=== PATIENT | male | born 1950 | race Caucasian/White ===

== ENCOUNTER 2020-12-24 13:43 | Inpatient (IN) ==
--- NOTE | 2020-12-24 14:23 | XRay Report ---
INDICATION: R great toe cellulitis TECHNIQUE: AP, oblique, lateral right foot COMPARISON: None. FINDINGS: Lateral view demonstrates a penetrating ulcer along the plantar aspects of the distal right 1st metatarsal. AP and oblique views show associated soft tissue swelling and tiny soft tissue gas bubbles. A gas gangrene is possible. No focal cortical destruction. No plain film evidence for osteomyelitis. No acute fracture. History is extensive atherosclerotic disease consistent with diabetes IMPRESSION: 1. Findings consistent with penetrating ulcer at the right 1st metatarsal phalangeal joint 2. Generalized soft tissue swelling at the base of the right 1st digit. Very small soft tissue gas bubbles identified 3. No cortical destruction. No evidence for osteomyelitis Interpreted and Authenticated by: Master Carney 12/24/20
[2020-12-24 15:31] LABS: Basophils # (Auto) 0.04 K/mcL (0.00-0.20); Basophils % (Auto) 0.5 % (0.0-2.0); Eosinophils % (Auto) 1.2 % (0.0-7.0); Hematocrit 37.9 % (41.0-55.0); Hemoglobin 11.9 g/dL (13.5-16.5); Lymphocytes # (Auto) 0.54 K/mcL (1.50-4.80); Lymphocytes % (Auto) 6.6 % (15.0-49.0); Mean Cell Volume 85.2 fL (80.0-100.0); Mean Corpuscular HGB Conc 31.4 g/dL (31.0-36.0); Mean Platelet Volume 8.9 fL (7.4-10.4); Monocytes # (Auto) 0.82 K/mcL (0.10-0.90); Neutrophils % (Auto) 81.7 % (38.0-78.0); Platelet Count 203 K/mcL (140-440); RBC 4.45 M/mcL (4.50-5.90); Red Cell Distribution Width 15.1 % (11.5-14.5); WBC 8.2 K/mcL (4.5-11.0)
[2020-12-24 15:47] LABS: Blood Urea Nitrogen 27 mg/dL (8-23); Calcium 9.5 mg/dL (8.6-10.4); Carbon Dioxide 25 mmol/L (22-30); Chloride 93 mmol/L (96-108); Glomerular Filtration Rate 75; Glucose 207 mg/dL (70-105)
[2020-12-24] MEDS ORDERED: VANCOMYCIN PER PHARMACY IV ONE (16:06)
--- NOTE | 2020-12-24 16:06 | Emergency Department Note ---
HPI General Chief complaint: Extremity Problem,Nontraumatic Stated complaint: Right diabetic foot ulcer Time Seen by Provider: 12/24/20 13:57 Source: patient Mode of arrival: wheelchair Limitations: no limitations History of Present Illness HPI Narrative: Narrative: Patient presents emergency department today for evaluation of chronic infections right great toe. He is followed here locally by wound care. Wound care evaluate the patient today and referred in the emergency department for hospitalization and partial amputation. Patient reports he recently finished antibiotics. He has a history of diabetes and neuropathy. He had an MRI of the foot 2 weeks ago. No other complaints. I reviewed images with the patient's wound care physician taken during today's clinic visit. Related Data Allergies Allergy/AdvReac Type Severity Reaction Status Date / Time Amoxicillin Allergy Verified 12/24/20 13:44 Sulfa (Sulfonamide Allergy Verified 12/24/20 13:44 Antibiotics) Review of Systems ROS ROS Narrative: Narrative: As above, all other systems reviewed and negative. PFSH Narrative Patient History Narrative: Narrative: Reviewed Medical/Surgical/Family History All Active Problems (Updated 12/24/20 @ 16:22 by Fredis Davis MD) Cellulitis (Acute) Social History Smoking Status: Never smoker Exam Narrative Narrative: Narrative: Vital signs reviewed please see nursing dictation. General Limitations: no limitations Head Head: Present atraumatic and normocephalic Eye Eye: Present normal appearance, PERRL and EOMI ENT ENT: Present normal exam Respiratory Respiratory: Absent respiratory distress Extremities Extremities: Present other (Right lower extremity: Dressing in place on left foot.) Neurological Neurological: Present alert, oriented X3 and CN II-XII intact; Absent motor sensory deficit Psychiatric Psychiatric: Present normal affect Skin Skin: Present warm (WNL) Course Vital Signs Vital signs: Vital Signs Temperature 97.7 F 12/24/20 13:44 Pulse Rate 78 12/24/20 13:44 Respiratory Rate 17 12/24/20 13:44 Blood Pressure 121/71 12/24/20 13:44 Pulse Oximetry (%) 97 12/24/20 13:44 Temperature 97.7 F 12/24/20 13:44 Pulse Rate 78 12/24/20 15:58 Respiratory Rate 17 12/24/20 13:44 Blood Pressure 153/80 12/24/20 15:58 Pulse Oximetry (%) 97 12/24/20 15:58 MDM MDM Narrative Medical decision making narrative: Narrative: X-ray of the foot shows no osteomyelitis, does show 1 small area of gas which looks to be within the area of infection. Wound cultures ordered. Patient given vancomycin. He has an allergy to amoxicillin. He states he has not had amoxicillin in a number of years he does not remember what the allergy was. I spoke with on- call hospitalist. Case reviewed in detail over the phone. Hospitalist recommended 2 g cefepime IV. Hospitalist evaluation is pending at time of dictation. Discussed findings with the patient. His questions are answered. He is agreeable with the plan. Lab Data Result diagrams: 12/24/20 14:50 12/24/20 14:50 Labs: Lab Results 12/24/20 12/24/20 Range/Units 14:50 14:50 WBC 8.2 (4.5-11.0) K/mcL RBC 4.45 L (4.50-5.90) M/mcL Hgb 11.9 L (13.5-16.5) g/dL Hct 37.9 L (41.0-55.0) % MCV 85.2 (80.0-100.0) fL MCH 26.7 (26.0-34.0) pg MCHC 31.4 (31.0-36.0) g/dL RDW 15.1 H (11.5-14.5) % Plt Count 203 (140-440) K/mcL MPV 8.9 (7.4-10.4) fL Neut % (Auto) 81.7 H (38.0-78.0) % Lymph % (Auto) 6.6 L (15.0-49.0) % [place] % (Auto) 10.0 (1.0-12.0) % Eos % (Auto) 1.2 (0.0-7.0) % Baso % (Auto) 0.5 (0.0-2.0) % Lymph # (Auto) 0.54 L (1.50-4.80) K/mcL [place] # (Auto) 0.82 (0.10-0.90) K/mcL Eos # (Auto) 0.10 (0.00-0.70) K/mcL Baso # (Auto) 0.04 (0.00-0.20) K/mcL Absolute Neutrophils 6.74 (1.80-8.00) K/mcL Sodium 128 L (133-145) mmol/L Potassium 4.8 (3.3-5.1) mmol/L Chloride 93 L (96-108) mmol/L Carbon Dioxide 25 (22-30) mmol/L Anion Gap 10.0 (8.0-16.0) BUN 27 H (8-23) mg/dL Creatinine 1.0 (0.7-1.2) mg/dL GFR Calculation 75 Glucose 207 H (70-105) mg/dL Calcium 9.5 (8.6-10.4) mg/dL Discharge Plan Patient/Caregiver Discharge Instructions Pt seen by CUSTOMS COLLECTOR/PA only: No Clinical Impression: Cellulitis Patient Disposition: Xfer As Inpt ([facility]) Follow up with: Ro Keating ARNP [Primary Care Provider] -
[2020-12-24] MEDS ORDERED: CEFEPIME 2 GM VIAL IV ONE (16:15)
--- NOTE | 2020-12-24 16:29 | Internal Med History&Physical ---
HPI History of Present Illness Patient information: Note initiated : 12/24/20 at 4:23 pm Service Date, if different from initiated Date: [] Patient: Andrew Gonzáles a 70 y/o M admitted on for Right Diabetic Foot Ulcer. Chief Complaint: [] History of present illness: Mr. Gonzáles is a 70 year old M Who went [facility] the [facility] When he was in there is seen by Dr. Casey who is sentiment to the ED for admission and IV antibiotics and likely partial amputation. Patient denies fevers but complains of chills. Tired. Denies chest pain shortness of breath. In the ED his CBC just showed some chronic anemia. His chemistry showed a hyponatremia of 128 BUN 27 creatinine 1.0. He was started on IV antibiotics in the ED. Sound like an MRI several weeks ago summer but I do not have those results. Review of Systems: Pertinent positives as above. Denies headache/fever/nausea/vomiting/chest or abdominal pain/cough/dyspnea/diarrhea. 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 denies alcohol or tobacco MEDS/ALLERGIES Home Medications and Allergies Allergies Allergy/AdvReac Type Severity Reaction Status Date / Time Amoxicillin Allergy Verified 12/24/20 13:44 Sulfa (Sulfonamide Allergy Verified 12/24/20 13:44 Antibiotics) EXAM Constitutional Vitals: Temp Pulse Resp BP Pulse Ox 97.7 F 78 17 153/80 97 12/24/20 13:44 12/24/20 15:58 12/24/20 13:44 12/24/20 15:58 12/24/20 15:58 Exam: General: Alert, Awake, No acute Distress Eyes/N/T: EOMI, PERRL, Head/Neck: neck supple, normocephalic atraumatic CV: RRR, No murmurs, normal s1/s2 Pulm: Clear b/l, no wheezing/rhonchi/rales Abd: soft, nontender, +BS x4 Ext: no clubbing/cyanosis/edema Neuro: Alert, no focal deficits, moves all extremities, CN 2-12 grossly intact, symmetrical strength b/l upper/lower, decreased sensation lower extremities from neuropathy, right foot dressings in place skin: warm/dry DATA Data Completed and Pending Labs: Labs from last 24 hours 12/24/20 12/24/20 14:50 14:50 WBC 8.2 RBC 4.45 L Hgb 11.9 L Hct 37.9 L MCV 85.2 MCH 26.7 MCHC 31.4 RDW 15.1 H Plt Count 203 MPV 8.9 Neut % (Auto) 81.7 H Lymph % (Auto) 6.6 L [place] % (Auto) 10.0 Eos % (Auto) 1.2 Baso % (Auto) 0.5 Lymph # (Auto) 0.54 L [place] # (Auto) 0.82 Eos # (Auto) 0.10 Baso # (Auto) 0.04 Absolute Neutrophils 6.74 Sodium 128 L Potassium 4.8 Chloride 93 L Carbon Dioxide 25 Anion Gap 10.0 BUN 27 H Creatinine 1.0 GFR Calculation 75 Glucose 207 H Calcium 9.5 A/P Narrative A/P Narrative: A: *Right foot diabetic ulcer with infection/likely osteomyelitis: *DM w/neuropathy: *h/o systolic(35%)/diastolic(III) CHF: *CKD III: *Anemia, chronic: *HTN: *?copd: *Depression: P: -IV Vanco/cefepime, pending wound cultures, mrsa screen -Dr. Delcid/Duran -monitor fluid balance closely -basal and SSI -clarify home meds - -PT/OT -ppx: Heparin DNR Time Spent With Patient Time: Total time spent is greater than 50% in coordination of care (as documented) at patient's floor/unit and/or counseling patient:
[2020-12-24] MEDS ORDERED: VANCOMYCIN 1,500 MG in 0.9 % SODIUM CHLORIDE 500 ML IV ONE (16:30)
[2020-12-24] MEDS ORDERED: LACTULOSE 20 GM/30 ML ORAL.SOL PO PRN (20:23)
[2020-12-24] MEDS ORDERED: SENNOSIDES 1 TABLET PO PRN (20:23)
[2020-12-24] MEDS ORDERED: POTASSIUM CHLORIDE 40 MEQ in DEXTROSE 5% IN WATER 500 ML IV PRN (20:23)
[2020-12-24] MEDS ORDERED: VANCOMYCIN PER PHARMACY IV SCH (20:23)
[2020-12-24] MEDS ORDERED: ONDANSETRON 4 MG/2 ML VIAL IV PRN (20:23)
[2020-12-24] MEDS ORDERED: MAGNESIUM SULFATE 2 GM/50 ML BAG IV PRN (20:23)
[2020-12-24] MEDS ORDERED: POTASSIUM CHLORIDE 20 MEQ TABLET PO PRN ×2 (20:23)
[2020-12-24] MEDS ORDERED: POLYETHYLENE GLYCOL 3350 17 GM PACKET PO PRN (20:23)
[2020-12-24] MEDS ORDERED: IPRATROPIUM/ALBUTEROL 3 ML AMPUL.NEB NEB PRN (20:23)
[2020-12-24] MEDS ORDERED: DEXTROSE 50% 50 ML VIAL IV PRN (20:23)
[2020-12-24] MEDS ORDERED: DEXTROSE 31 GM ORAL.SUSP PO PRN (20:23)
[2020-12-24 21:26] LABS: C-Reactive Protein 4.1 mg/dL (0.03-0.80)
[2020-12-24 23:01] LABS: Hemoglobin A1C 9.2 % Hgb (4.0-6.0)
[2020-12-25] MEDS: INSULIN LISPRO 1 UNIT/0.01 ML UNIT SQ SCH ×6 (00:08→22:16)
[2020-12-25] MEDS: HEPARIN 5,000 UNIT/ML VIAL SQ SCH ×3 (00:25→22:16)
[2020-12-25] MEDS: DOCUSATE SODIUM 100 MG CAPSULE PO SCH ×3 (00:25→22:16)
[2020-12-25] MEDS ORDERED: HEPARIN 5,000 UNIT/ML VIAL ONE (00:28)
[2020-12-25] MEDS: 0.9 % SODIUM CHLORIDE 10 ML SYRINGE IV SCH ×5 (00:38→23:45)
[2020-12-25 06:54] LABS: Basophils # (Auto) 0.06 K/mcL (0.00-0.20); Eosinophils # (Auto) 0.09 K/mcL (0.00-0.70); Eosinophils % (Auto) 1.6 % (0.0-7.0); Hematocrit 34.9 % (41.0-55.0); Hemoglobin 10.9 g/dL (13.5-16.5); Lymphocytes # (Auto) 0.68 K/mcL (1.50-4.80); Lymphocytes % (Auto) 11.7 % (15.0-49.0); Mean Cell Volume 84.7 fL (80.0-100.0); Mean Corpuscular HGB Conc 31.2 g/dL (31.0-36.0); Monocytes # (Auto) 0.85 K/mcL (0.10-0.90); Monocytes % (Auto) 14.7 % (1.0-12.0); Platelet Count 191 K/mcL (140-440); RBC 4.12 M/mcL (4.50-5.90); Red Cell Distribution Width 15.2 % (11.5-14.5); WBC 5.8 K/mcL (4.5-11.0)
[2020-12-25 07:15] LABS: ALT/SGPT 9 U/L (<40); AST/SGOT 19 U/L (<40); Albumin 3.2 gm/dL (3.2-5.2); Albumin/Globulin Ratio 0.9 (1.0-2.3); Alkaline Phosphatase 82 U/L (39-117); Bilirubin,Direct 0.3 mg/dL (<0.3); Bilirubin,Total 0.9 mg/dL (0.1-1.0); Blood Urea Nitrogen 22 mg/dL (8-23); Calcium 8.9 mg/dL (8.6-10.4); Carbon Dioxide 23 mmol/L (22-30); Chloride 97 mmol/L (96-108); Globulin 3.5 gm/dL (2.2-3.7); Glomerular Filtration Rate 75; Glucose 179 mg/dL (70-105); Lactate Dehydrogenase 337 U/L (135-225); Phosphorous 3.2 mg/dL (2.5-4.5); Triglycerides 70 mg/dL (<150); Uric Acid 5.9 mg/dL (2.5-8.0)
[2020-12-25] MEDS ORDERED: FUROSEMIDE 40 MG/4 ML VIAL IV ONE (07:50)
--- NOTE | 2020-12-25 07:51 | Internal Med Progress Note ---
SUBJECTIVE Subjective Patient information: Note initiated : 12/25/20 at 7:48 am Service Date, if different from initiated Date: [] Patient: Andrew Gonzáles 70 y/o M admitted on 12/24/20 for Right Diabetic Foot Ulcer. Chief Complaint: [] Interval history: History of present illness: Mr. Gonzáles is a 70 year old M Who went to the [facility] care [facility] When he was in there is seen by Dr. Casey who is sentiment to the ED for admission and IV antibiotics and likely partial amputation. Patient denies fevers but complains of chills. Tired. Denies chest pain shortness of breath. In the ED his CBC just showed some chronic anemia. His chemistry showed a hyponatremia of 128 BUN 27 creatinine 1.0. He was started on IV antibiotics in the ED. Sound like an MRI several weeks ago summer but I do not have those results. 12/25 No overnight event or new complaints. Review of Systems: denies headache/fever/chills/nausea/vomiting/chest or abdominal pain/cough/dyspnea/diarrhea. Otherwise see above. Constitutional Vitals: Vital Signs Temp Pulse Resp BP Pulse Ox 97.2 F 73 18 98/56 91 12/25/20 07:47 12/25/20 07:47 12/25/20 07:47 12/25/20 07:47 12/25/20 07:47 Period Temp Pulse Resp BP Sys/[place] Pulse Ox Last 24 Hr 97.2 F-99.2 F 73-82 16-20 95-153/56-80 91-99 Intake and Output 12/24/20 12/25/20 12/25/20 21:59 05:59 13:59 Intake Total 740 Balance 740 Weight 99.79 kg Intake & Output: Intake & Output 12/24/20 12/25/20 12/25/20 21:59 05:59 13:59 Intake Total 740 Balance 740 Weight 99.79 kg Intake: IV 500 Vancomycin 1,500 mg In Sodium 500 Chloride 0.9% 500 ml @ 333.3 mls/hr IV ONCE ONE Rx#: [id number] Oral 240 Other: Meal Nourishment/Supplement Percent of Meal Consumed 100% Feeding Ability Independent Nourishment/Supplement name sandwich # Voids 1 Exam: General: Alert, Awake, No acute Distress Eyes/N/T: EOMI,, Head/Neck: neck supple, CV: RRR, No murmurs, Pulm: Clear b/l, no wheezing/rhonchi/rales Abd: soft, nontender, +BS x4 Ext: no clubbing/cyanosis/edema Neuro: Alert, no focal deficits, moves all extremities, decreased sensation lower extremities from neuropathy, right foot dressings in place skin: warm/dry OBJ DATA Labs CBC & Chem 7: 12/25/20 05:04 12/25/20 05:04 Labs: Abnormal Lab Results 12/25/20 12/25/20 12/24/20 05:04 05:04 14:50 RBC 4.12 L Hgb 10.9 L Hct 34.9 L RDW 15.2 H Neut % (Auto) Lymph % (Auto) 11.7 L [place] % (Auto) 14.7 H Lymph # (Auto) 0.68 L ESR 43 H Sodium 130 L Chloride BUN Glucose 179 H Hemoglobin A1c Direct Bilirubin 0.3 H Lactate Dehydrogenase 337 H C-Reactive Protein Albumin/Globulin Ratio 0.9 L 12/24/20 12/24/20 12/24/20 14:50 14:50 14:50 RBC 4.45 L Hgb 11.9 L Hct 37.9 L RDW 15.1 H Neut % (Auto) 81.7 H Lymph % (Auto) 6.6 L [place] % (Auto) Lymph # (Auto) 0.54 L ESR Sodium 128 L Chloride 93 L BUN 27 H Glucose 207 H Hemoglobin A1c 9.2 H Direct Bilirubin Lactate Dehydrogenase C-Reactive Protein 4.10 H Albumin/Globulin Ratio Meds: Medications Acetaminophen (Acetaminophen 325 Mg Tablet) 650 mg PO Q6HP PRN PRN Reason: PAIN/FEVER > 101 Albuterol/Ipratropium (Ipratropium/Albuterol 3 Ml Ampul.Neb) 3 ml NEB Q4HP PRN PRN Reason: Shortness Of Breath Dextrose (Dextrose 50% 50 Ml Vial) 0 ml IV UD PRN PRN Reason: Hypoglycemia Diagnostic Test (Pha) (Accu-Chek 1 Each Strip) 1 each FS ACHS [facility] Last Admin: 12/25/20 00:07 Dose: 1 each Documented by: Docusate Sodium (Docusate Sodium 100 Mg Capsule) 100 mg PO BID [facility] Last Admin: 12/25/20 00:25 Dose: Not Given Documented by: Glucose (Dextrose 31 Gm Oral.Susp) 15 gm PO PRN PRN PRN Reason: Hypoglycemia Heparin Sodium (Porcine) (Heparin 5,000 Unit/Ml Vial) 5,000 unit SQ Q12 [facility] Last Admin: 12/25/20 00:25 Dose: Not Given Documented by: Potassium Chloride 40 meq/ (Dextrose) 520 mls @ 130 mls/hr IV UD PRN PRN Reason: Potassium < 3 Magnesium Sulfate (Magnesium Sulfate) 2 gm in 50 mls @ 50 mls/hr IV UD PRN PRN Reason: Magnesium </= 1.6 Vancomycin HCl 1,000 mg/ (Sodium Chloride) 250 mls @ 250 mls/hr IV Q12H [facility] Insulin Human Lispro (Insulin Lispro 1 Unit/0.01 Ml Unit) 0 unit SQ ACHS [facility]; Protocol Last Admin: 12/25/20 00:09 Dose: Not Given Documented by: Lactulose (Lactulose 20 Gm/30 Ml Oral.Nolvia) 20 gm PO DAILYP PRN PRN Reason: Constipation Ondansetron HCl (Ondansetron 4 Mg/2 Ml Vial) 4 mg IV Q4HP PRN PRN Reason: Nausea And Vomiting Polyethylene Glycol (Polyethylene Glycol 3350 17 Gm Packet) 17 gm PO DAILYP PRN PRN Reason: Constipation Potassium Chloride (Potassium Chloride 20 Meq Tablet) 40 meq PO UD PRN PRN Reason: Potssium is 3-3.5 Potassium Chloride (Potassium Chloride 20 Meq Tablet) 40 meq PO UD PRN PRN Reason: Potassium < 3 Senna (Sennosides 1 Tablet) 2 tab PO DAILYP PRN PRN Reason: Constipation Sodium Chloride (0.9 % Sodium Chloride 10 Ml Syringe) 10 ml IV Q8 [facility] Last Admin: 12/25/20 05:35 Dose: 10 ml Documented by: Vancomycin HCl (Vancomycin Per Pharmacy) 1 order IV UD [facility]; Protocol A/P Narrative A/P Narrative: A: *Right foot diabetic ulcer with infection/likely osteomyelitis: *DM w/neuropathy: A1c 9.2 *h/o systolic(35%)/diastolic(III) CHF: *CKD III: *Anemia, chronic: *HTN: *?copd: *Depression: *Hyponatremia: P: -IV Vanco/cefepime, pending wound cultures, mrsa screen -Dr. Delcid/Duran -monitor fluid balance closely -basal and SSI -clarify home meds - -PT/OT -ppx: Heparin DNR Time Spent With Patient Time: Total time spent is greater than 50% in coordination of care (as doc umented) at patient's floor/unit and/or counseling patient: QUALITY VTE Deep Vein Thrombosis/Pulmonary Embolism Present on Admission: No
[2020-12-25] MEDS: VANCOMYCIN 1,000 MG in 0.9 % SODIUM CHLORIDE 250 ML IV SCH ×2 (08:54→22:20)
--- NOTE | 2020-12-25 08:56 | Orthopedic Consult Note ---
HPI Data of Consult Primary Care Provider: Ro Keating Consult Narrative Patient Information: Note initiated : 12/25/20 at 8:51 am Service Date, if different from initiated Date: [] Patient: Andrew Gonzáles 70 y/o M admitted on 12/24/20 for Right Diabetic Foot Ulcer. Chief Complaint: [right foot infection] Patient is a 70 diabetic who has a chronic ulceration of the right foot. He was seen for the first time by wound care. Dr. Delcid admitted him through the ED to the hospital for gas gangrene of the right foot. The patient does not recall how exactly this began he did not feel pain to the area. He has not had fever chills nausea vomiting in the recent history. He has noticed drainage and malodor from the foot. 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 Initial wound encounter measurements are 0.2cm length x 0.3cm width x 1.3cm depth, with an area of 0.06 sq cm and a volume of 0.078 cubic cm. Bone is exposed. No tunneling) A/P Time Spent With Patient Time: Total time spent is greater than 50% in coordination of care (as documented) at patient's floor/unit and/or counseling patient: Extensive discussion with patient regarding the need for transmetatarsal amputation. He states that what ever needs to be done needs to be done and that he is prepared to undergo the procedure. 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 He understands that there will be serious consequences for having a partial foot removal and these include recurrent infection need for additional amputation, pain, systemic effects such as sepsis. He is willing to accept these risks and would like to go forward with the procedure soon as possible. Plan is transmetatarsal amputation this afternoon. Patient is placed on n.p.o. status. 45 minutes spent with patient and documentation and coordinating care.
[2020-12-25] MEDS: CEFEPIME 2 GM VIAL IV SCH ×3 (10:47→23:45)
[2020-12-25] MEDS ORDERED: MECLIZINE 25 MG TABLET PO PRN (10:55)
[2020-12-25] MEDS ORDERED: NITROGLYCERIN 0.4 MG TAB.SUBL SL PRN (10:56)
[2020-12-25 12:27] LABS: Appearance,Urine CLEAR (Clear); Bilirubin,Urine Negative (Negative); Color,Urine STRAW; Culture Indicated,Urine No; Glucose,Urine (UA) Negative (Negative); Ketones,Urine Negative (Negative); Leukocyte Esterase,Urine Negative /ug (Negative); Nitrate,Urine Negative (Negative); Protein,Urine Negative (Negative); Specific Gravity,Urine 1.006 (1.000-1.035); Urine Blood Negative (Negative); Urobilinogen,Urine Negative
--- NOTE | 2020-12-25 14:10 | EKG ---
[facility] Test Date: 2020-12-25 Pat Name: Andrew Gonzáles Department: [facility] Room: 131 Gender: Male [employer] Supervisor: : [id number] Requested By: Christelle Knight Order Number: [id number] Reading MD: Allan Razo M.D. Measurements Intervals [place] Rate: 73 P: 54 IN: 168 QRS: -54 QRSD: 128 T: 143 QT: 436 QTc: 481 Interpretive Statements SINUS RHYTHM NONSPECIFIC IVCD WITH LAD BORDERLINE R WAVE PROGRESSION, ANTERIOR LEADS No prior tracing for comparison. I reviewed and agree with the above findings. Electronically Signed On 12-25-2020 14:09:30 PDT by Allan Razo M.D. /[facility] [place]//[id number]
[2020-12-25] MEDS ORDERED: DEXAMETHASONE 10 MG/ML VIAL ONE (15:01)
[2020-12-25] MEDS ORDERED: ePHEDrine 50 MG/ML AMPUL IV ONE (15:01)
[2020-12-25] MEDS ORDERED: MIDAZOLAM 5 MG/5 ML VIAL ONE (15:01)
[2020-12-25] MEDS ORDERED: fentaNYL 100 MCG/2 ML VIAL IV ONE (15:01)
[2020-12-25] MEDS ORDERED: PROPOFOL 200 MG/20 ML VIAL IV ONE (15:01)
[2020-12-25] MEDS ORDERED: ONDANSETRON 4 MG/2 ML VIAL ONE (15:01)
[2020-12-25] MEDS ORDERED: VASOPRESSIN 20 UNIT/ML VIAL ONE (15:01)
[2020-12-25] MEDS ORDERED: PHENYLEPHRINE 10 MG/ML VIAL ONE (15:01)
[2020-12-25] MEDS ORDERED: LIDOCAINE HCL/PF 100 MG/5 ML SYRINGE IV ONE (15:01)
--- NOTE | 2020-12-25 15:01 | Brief Operative Note ---
Brief Operative Note Date of procedure: 12/25/20 Pre-op diagnosis: cellulits with abcess, osteomyelitis, right foot Post-op diagnosis: same Procedure: Transmetatarsal amputation right foot Grafts/Implants: No Anesthesia: AIDA Surgeon: Albert Garzon Estimated blood loss (cc): 500 Specimens Removed/Pathology: other (Bone for pathology and bone culture x 2, deep tissue culture) Condition: other (fair) Disposition: floor
[2020-12-25] MEDS ORDERED: diphenhydrAMINE 50 MG/ML VIAL IV PRN (16:04)
[2020-12-25] MEDS ORDERED: IPRATROPIUM/ALBUTEROL 3 ML AMPUL.NEB NEB PRN (16:04)
[2020-12-25] MEDS ORDERED: ONDANSETRON 4 MG/2 ML VIAL IV PRN (16:04)
[2020-12-25] MEDS ORDERED: ePHEDrine 50 MG/ML AMPUL IV PRN (16:04)
[2020-12-25] MEDS ORDERED: FLUMAZENIL 0.1 MG/ML ML IV PRN (16:04)
[2020-12-25] MEDS ORDERED: ATROPINE SULFATE 0.4 MG/ML VIAL IV PRN (16:04)
[2020-12-25] MEDS ORDERED: NALOXONE HCL 0.4 MG/ML VIAL IV PRN (16:04)
[2020-12-25] MEDS ORDERED: METHOCARBAMOL 1,000 MG/10 ML VIAL IV PRN (16:04)
[2020-12-25] MEDS ORDERED: METOPROLOL TARTRATE 5 MG/5 ML VIAL IV PRN (16:04)
[2020-12-25] MEDS ORDERED: PROMETHAZINE 25 MG/ML VIAL IV PRN (16:04)
[2020-12-25] MEDS: fentaNYL 100 MCG/2 ML VIAL IV PRN ×2 (16:12→16:21)
[2020-12-25] MEDS ORDERED: LACTATED RINGERS 1,000 ML IV SCH (16:15)
[2020-12-25] MEDS ORDERED: VANCOMYCIN 1 GM VIAL TOPICAL SCH (16:30)
[2020-12-25 16:39] LABS: POC Blood Urea Nitrogen 22 mg/dL (6-20); POC CO2 27 mmol/L (22-30); POC Calcium, Ionized 1.08 mmEq/L (1.16-1.32); POC Chloride 99 mEq/L (96-108); POC Glucose, Random 198 mg/dL (70-105); POC Hematocrit 27 % (41-55); POC Potassium 4.3 mEql/L (3.3-5.1); POC Sodium 134 mEq/L (133-145)
[2020-12-25] MEDS: metFORMIN 500 MG TAB.XL.24H PO SCH (17:20)
[2020-12-25 18:28] LABS: Hematocrit 33.6 % (41.0-55.0); Hemoglobin 10.5 g/dL (13.5-16.5)
[2020-12-25] MEDS: DULoxetine 30 MG CAPSULE PO SCH (22:15)
[2020-12-25] MEDS: ATORVASTATIN 40 MG TABLET PO SCH (22:15)
[2020-12-25] MEDS: CYCLOBENZAPRINE 10 MG TABLET PO SCH (22:15)
[2020-12-25] MEDS: GABAPENTIN 300 MG CAPSULE PO SCH (22:16)
[2020-12-25] MEDS: INSULIN GLARGINE, HUMAN 1 UNIT/0.01 ML SQ SCH (22:18)
[2020-12-25] MEDS: LATANOPROST OPHTH DROPS 2.5ML BOTTLE OU SCH (23:27)
[2020-12-26] MEDS: ACETAMINOPHEN 325 MG TABLET PO PRN ×2 (02:40→18:00)
[2020-12-26] MEDS ORDERED: morphine 2 MG/ML VIAL IV PRN (03:29)
[2020-12-26] MEDS ORDERED: morphine 2 MG/ML VIAL ONE (03:36)
[2020-12-26] MEDS ORDERED: HYDROcodone/APAP 5/325MG TABLET PO ONE (06:06)
[2020-12-26] MEDS: 0.9 % SODIUM CHLORIDE 10 ML SYRINGE IV SCH ×4 (06:09→22:20)
[2020-12-26] MEDS: CEFEPIME 2 GM VIAL IV SCH ×3 (06:09→22:32)
[2020-12-26 06:37] LABS: Basophils # (Auto) 0.02 K/mcL (0.00-0.20); Basophils % (Auto) 0.2 % (0.0-2.0); Eosinophils # (Auto) 0 K/mcL (0.00-0.70); Eosinophils % (Auto) 0 % (0.0-7.0); Hematocrit 28.3 % (41.0-55.0); Hemoglobin 9.1 g/dL (13.5-16.5); Lymphocytes # (Auto) 0.47 K/mcL (1.50-4.80); Lymphocytes % (Auto) 5.7 % (15.0-49.0); Mean Cell Volume 83.5 fL (80.0-100.0); Mean Corpuscular HGB Conc 32.2 g/dL (31.0-36.0); Mean Platelet Volume 9.4 fL (7.4-10.4); Monocytes # (Auto) 0.65 K/mcL (0.10-0.90); Monocytes % (Auto) 7.9 % (1.0-12.0); Neutrophils % (Auto) 86.2 % (38.0-78.0); Platelet Count 192 K/mcL (140-440); RBC 3.39 M/mcL (4.50-5.90); Red Cell Distribution Width 14.7 % (11.5-14.5); WBC 8.3 K/mcL (4.5-11.0)
[2020-12-26 07:03] LABS: ALT/SGPT 9 U/L (<40); AST/SGOT 15 U/L (<40); Albumin 3.1 gm/dL (3.2-5.2); Alkaline Phosphatase 69 U/L (39-117); Bilirubin,Direct 0.4 mg/dL (<0.3); Bilirubin,Total 0.8 mg/dL (0.1-1.0); Blood Urea Nitrogen 26 mg/dL (8-23); Calcium 8.5 mg/dL (8.6-10.4); Carbon Dioxide 23 mmol/L (22-30); Chloride 96 mmol/L (96-108); Globulin 3.1 gm/dL (2.2-3.7); Glomerular Filtration Rate 67; Glucose 379 mg/dL (70-105); Lactate Dehydrogenase 174 U/L (135-225); Phosphorous 2.5 mg/dL (2.5-4.5); Triglycerides 76 mg/dL (<150); Uric Acid 5.9 mg/dL (2.5-8.0)
[2020-12-26] MEDS: metFORMIN 500 MG TAB.XL.24H PO SCH ×2 (07:46→16:51)
[2020-12-26] MEDS: INSULIN LISPRO 1 UNIT/0.01 ML UNIT SQ SCH ×4 (07:49→22:20)
--- NOTE | 2020-12-26 08:17 | Internal Med Progress Note ---
SUBJECTIVE Subjective Patient information: Note initiated : 12/26/20 at 8:13 am Service Date, if different from initiated Date: [] Patient: Andrew Gonzáles 70 y/o M admitted on 12/24/20 for Right Diabetic Foot Ulcer. Chief Complaint: [] Interval history: History of present illness: Mr. Gonzáles is a 70 year old M Who went to the [facility] care [facility] When he was in there is seen by Dr. Casey who is sentiment to the ED for admission and IV antibiotics and likely partial amputation. Patient denies fevers but complains of chills. Tired. Denies chest pain shortness of breath. In the ED his CBC just showed some chronic anemia. His chemistry showed a hyponatremia of 128 BUN 27 creatinine 1.0. He was started on IV antibiotics in the ED. Sound like an MRI several weeks ago summer but I do not have those results. 12/25 No overnight event or new complaints. 12/26 Patient had transmetatarsal amputation yesterday. Did lose quite a bit of blood during the procedure but follow-up globin stable. Review of Systems: denies headache/fever/chills/nausea/vomiting/chest or abdominal pain/cough/dyspnea/diarrhea. Otherwise see above. Constitutional Vitals: Vital Signs Temp Pulse Resp BP Pulse Ox 97.8 F 100 H 18 113/68 98 12/26/20 08:00 12/26/20 08:00 12/26/20 08:00 12/26/20 08:00 12/26/20 08:00 Period Temp Pulse Resp BP Sys/Hancock Pulse Ox Last 24 Hr 96.9 F-98.3 F 74-100 14-24 82-113/44-77 89-100 Intake and Output 12/25/20 12/26/20 12/26/20 21:59 05:59 13:59 Intake Total 1440 550 500 Output Total 875 350 300 Balance 565 200 200 Weight 102.194 kg Intake & Output: Intake & Output 12/25/20 12/26/20 12/26/20 21:59 05:59 13:59 Intake Total 1440 550 500 Output Total 875 350 300 Balance 565 200 200 Weight 102.194 kg Intake: IV 250 500 Lactated Ringers 1,000 ml @ 20 500 mls/hr IV .Q24H NEL Rx#: [id number] Vancomycin 1,000 mg In Sodium 250 Chloride 0.9% 250 ml @ 250 mls/ hr IV Q12H NEL Rx#:[id number] Oral 240 300 IV - Manual Only 1200 Output: Void Amount 175 350 300 Estimated Blood Loss 700 Other: Meal Dinner Percent of Meal Consumed 100% Urine Appearance Clear Clear Clear Urine Color Bright Yellow Dark Yellow Dark Yellow Urine Odor Strong Exam: General: Alert, Awake, No acute Distress Eyes/N/T: EOMI,, Head/Neck: neck supple, CV: RRR, No murmurs, Pulm: Clear b/l, no wheezing/rhonchi/rales Abd: soft, nontender, +BS x4 Ext: no clubbing/cyanosis/edema Neuro: Alert, no focal deficits, moves all extremities, decreased sensation lower extremities from neuropathy, right foot dressings in place skin: warm/dry OBJ DATA Labs CBC & Chem 7: 12/26/20 05:40 12/26/20 05:40 Labs: Abnormal Lab Results 12/26/20 12/26/20 12/25/20 05:40 05:40 17:38 RBC 3.39 L Hgb 9.1 L 10.5 L Hct 28.3 L 33.6 L POC Hct RDW 14.7 H Neut % (Auto) 86.2 H Lymph % (Auto) 5.7 L [place] % (Auto) Lymph # (Auto) 0.47 L ESR Sodium 129 L Chloride POC BUN BUN 26 H Glucose 379 H POC Glucose Hemoglobin A1c Calcium 8.5 L POC WB Ioniz Calcium Direct Bilirubin 0.4 H Lactate Dehydrogenase C-Reactive Protein Albumin 3.1 L Albumin/Globulin Ratio 12/25/20 12/25/20 12/25/20 16:25 05:04 05:04 RBC 4.12 L Hgb 10.9 L Hct 34.9 L POC Hct 27 L RDW 15.2 H Neut % (Auto) Lymph % (Auto) 11.7 L [place] % (Auto) 14.7 H Lymph # (Auto) 0.68 L ESR Sodium 130 L Chloride POC BUN 22 H BUN Glucose 179 H POC Glucose 198 H Hemoglobin A1c Calcium POC WB Ioniz Calcium 1.08 L Direct Bilirubin 0.3 H Lactate Dehydrogenase 337 H C-Reactive Protein Albumin Albumin/Globulin Ratio 0.9 L 05/12/24/20 12/24/20 14:50 14:50 14:50 RBC Hgb Hct POC Hct RDW Neut % (Auto) Lymph % (Auto) [place] % (Auto) Lymph # (Auto) ESR 43 H Sodium 128 L Chloride 93 L POC BUN BUN 27 H Glucose 207 H POC Glucose Hemoglobin A1c 9.2 H Calcium POC WB Ioniz Calcium Direct Bilirubin Lactate Dehydrogenase C-Reactive Protein 4.10 H Albumin Albumin/Globulin Ratio 12/24/20 14:50 RBC 4.45 L Hgb 11.9 L Hct 37.9 L POC Hct RDW 15.1 H Neut % (Auto) 81.7 H Lymph % (Auto) 6.6 L [place] % (Auto) Lymph # (Auto) 0.54 L ESR Sodium Chloride POC BUN BUN Glucose POC Glucose Hemoglobin A1c Calcium POC WB Ioniz Calcium Direct Bilirubin Lactate Dehydrogenase C-Reactive Protein Albumin Albumin/Globulin Ratio Meds: Medications Acetaminophen (Acetaminophen 325 Mg Tablet) 650 mg PO Q6HP PRN PRN Reason: PAIN/FEVER > 101 Last Admin: 12/26/20 02:40 Dose: 650 mg Documented by: Hydrocodone Bitart/Acetaminophen (Hydrocodone/Apap 5/325mg Tablet) 1 tab PO Q4HP PRN; Protocol PRN Reason: Per Pain Protocol Albuterol/Ipratropium (Ipratropium/Albuterol 3 Ml Ampul.Neb) 3 ml NEB Q4HP PRN PRN Reason: Shortness Of Breath Aspirin (Aspirin 81 Mg Tab.Chew) 81 mg PO DAILY [facility] Atorvastatin Calcium (Atorvastatin 40 Mg Tablet) 80 mg PO [facility] Last Admin: 12/25/20 22:15 Dose: 80 mg Documented by: Bisoprolol Fumarate (Bisoprolol 5 Mg Tablet) 5 mg PO DAILY [facility] Cefepime HCl (Cefepime 2 Gm Vial) 2 gm IV Q8H [facility] Last Admin: 12/26/20 06:09 Dose: 2 gm Documented by: Cyclobenzaprine HCl (Cyclobenzaprine 10 Mg Tablet) 10 mg PO [facility] Last Admin: 12/25/20 22:15 Dose: 10 mg Documented by: Dextrose (Dextrose 50% 50 Ml Vial) 0 ml IV UD PRN PRN Reason: Hypoglycemia Diagnostic Test (Pha) (Accu-Chek 1 Each Strip) 1 each FS ACHS [facility] Last Admin: 12/26/20 07:44 Dose: 1 each Documented by: Docusate Sodium (Docusate Sodium 100 Mg Capsule) 100 mg PO BID [facility] Last Admin: 12/25/20 22:16 Dose: 100 mg Documented by: Duloxetine HCl (Duloxetine 30 Mg Capsule) 60 mg PO QHS [facility] Last Admin: 12/25/20 22:15 Dose: 60 mg Documented by: Furosemide (Furosemide 40 Mg Tablet) 40 mg PO QDAY [facility] Gabapentin (Gabapentin 300 Mg Capsule) 300 mg PO BID [facility] Last Admin: 12/25/20 22:16 Dose: 300 mg Documented by: Glucose (Dextrose 31 Gm Oral.Susp) 15 gm PO PRN PRN PRN Reason: Hypoglycemia Heparin Sodium (Porcine) (Heparin 5,000 Unit/Ml Vial) 5,000 unit SQ Q12 [facility] Last Admin: 12/25/20 22:16 Dose: 5,000 unit Documented by: Potassium Chloride 40 meq/ (Dextrose) 520 mls @ 130 mls/hr IV UD PRN PRN Reason: Potassium < 3 Magnesium Sulfate (Magnesium Sulfate) 2 gm in 50 mls @ 50 mls/hr IV UD PRN PRN Reason: Magnesium </= 1.6 Vancomycin HCl 1,000 mg/ (Sodium Chloride) 250 mls @ 250 mls/hr IV Q12H [facility] Last Infusion: 12/25/20 23:20 Dose: Infused Documented by: Insulin Glargine (Insulin Glargine, Human 1 Unit/0.01 Ml) 10 unit SQ BID [facility] Last Admin: 12/25/20 22:18 Dose: 10 units Documented by: Insulin Human Lispro (Insulin Lispro 1 Unit/0.01 Ml Unit) 0 unit SQ [facility]; Protocol Last Admin: 12/26/20 07:49 Dose: 12 units Documented by: Lactulose (Lactulose 20 Gm/30 Ml Oral.Nolvia) 20 gm PO DAILYP PRN PRN Reason: Constipation Latanoprost (Latanoprost Ophth Drops 2.5ml Bottle) 1 gtt OU QHS [facility] Last Admin: 12/25/20 23:27 Dose: Not Given Documented by: Meclizine HCl (Meclizine 25 Mg Tablet) 25 mg PO TIDP PRN PRN Reason: Vertigo Metformin HCl (Metformin 500 Mg Tab.Xl.24h) 500 mg PO BIDCC [facility] Last Admin: 12/26/20 07:46 Dose: 500 mg Documented by: Morphine Sulfate (Morphine 2 Mg/Ml Vial) 1 - 3 mg IV Q3HP PRN; Protocol PRN Reason: Per Pain Protocol Nitroglycerin (Nitroglycerin 0.4 Mg Tab.Subl) 0.4 mg SL Q5M PRN PRN Reason: Chest Pain Ondansetron HCl (Ondansetron 4 Mg/2 Ml Vial) 4 mg IV Q4HP PRN PRN Reason: Nausea And Vomiting Polyethylene Glycol (Polyethylene Glycol 3350 17 Gm Packet) 17 gm PO DAILYP PRN PRN Reason: Constipation Potassium Chloride (Potassium Chloride 20 Meq Tablet) 40 meq PO UD PRN PRN Reason: Potssium is 3-3.5 Potassium Chloride (Potassium Chloride 20 Meq Tablet) 40 meq PO UD PRN PRN Reason: Potassium < 3 Senna (Sennosides 1 Tablet) 2 tab PO DAILYP PRN PRN Reason: Constipation Sodium Chloride (0.9 % Sodium Chloride 10 Ml Syringe) 10 ml IV Q8 [facility] Last Admin: 12/26/20 06:10 Dose: Not Given Documented by: Vancomycin HCl (Vancomycin Per Pharmacy) 1 order IV UD [facility]; Protocol A/P Narrative A/P Narrative: A: *Right foot diabetic ulcer with infection/likely osteomyelitis: s/p TM Amp (12/25) *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 Delcid/Duran -monitor fluid balance closely -decreased home BB -basal and SSI -IS - -PT/OT -ppx: Heparin DNR Time Spent With Patient Time: Total time spent is greater than 50% in coordination of care (as documented) at patient's floor/unit and/or counseling patient: QUALITY VTE Deep Vein Thrombosis/Pulmonary Embolism Present on Admission: No
[2020-12-26] MEDS ORDERED: BISOPROLOL 5 MG TABLET PO SCH (09:00)
[2020-12-26 09:23] LABS: Thyroid Stimulating Hormone 1.25 uIU/mL (0.27-5.01)
[2020-12-26] MEDS: DOCUSATE SODIUM 100 MG CAPSULE PO SCH ×2 (09:28→22:20)
[2020-12-26] MEDS: INSULIN GLARGINE, HUMAN 1 UNIT/0.01 ML SQ SCH ×2 (09:28→22:21)
[2020-12-26] MEDS: FUROSEMIDE 40 MG TABLET PO SCH (09:28)
[2020-12-26] MEDS: GABAPENTIN 300 MG CAPSULE PO SCH ×2 (09:28→22:23)
[2020-12-26] MEDS: ASPIRIN 81 MG TAB.CHEW PO SCH (09:28)
[2020-12-26] MEDS: HEPARIN 5,000 UNIT/ML VIAL SQ SCH ×2 (09:28→22:20)
[2020-12-26] MEDS: VANCOMYCIN 1,000 MG in 0.9 % SODIUM CHLORIDE 250 ML IV SCH ×2 (11:12→22:32)
--- NOTE | 2020-12-26 13:37 | Orthopedic Progress Note ---
SUBJECTIVE Subjective Patient information: Note initiated : 12/26/20 at 1:35 pm Service Date, if different from initiated Date: [] Patient: Andrew Gonzáles 70 y/o M admitted on 12/24/20 for Right Diabetic Foot Ulcer. Chief Complaint: [foot infection] Not having much pain post procedure yesterday. Constitutional Vitals: Vital Signs Temp Pulse Resp BP Pulse Ox 98 F 89 20 109/68 97 12/26/20 11:59 12/26/20 11:59 12/26/20 11:59 12/26/20 11:59 12/26/20 11:59 Period Temp Pulse Resp BP Sys/Hancock Pulse Ox Last 24 Hr 96.9 F-98.3 F 74-100 14-24 82-113/44-68 89-100 Intake and Output 12/25/20 12/26/20 12/26/20 21:59 05:59 13:59 Intake Total 1440 550 990 Output Total 875 350 375 Balance 565 200 615 Weight 225 lb 4.8 oz Intake & Output: Intake & Output 12/25/20 12/26/20 12/26/20 21:59 05:59 13:59 Intake Total 1440 550 990 Output Total 875 350 375 Balance 565 200 615 Weight 225 lb 4.8 oz Intake: IV 250 750 Lactated Ringers 1,000 ml @ 20 500 mls/hr IV .Q24H NEL Rx#: [id number] Vancomycin 1,000 mg In Sodium 250 250 Chloride 0.9% 250 ml @ 250 mls/ hr IV Q12H NEL Rx#:[id number] Oral 240 300 240 IV - Manual Only 1200 Output: Void Amount 175 350 375 Estimated Blood Loss 700 Other: Meal Dinner Lunch Percent of Meal Consumed 100% 75% Feeding Ability Independent Urine Appearance Clear Clear Clear Urine Color Bright Yellow Dark Yellow Dark Yellow Urine Odor Strong Strong OBJ DATA Labs CBC & Chem 7: 12/26/20 05:40 12/26/20 05:40 Labs: Abnormal Lab Results 12/26/20 12/26/20 12/26/20 08:11 05:40 05:40 RBC 3.39 L Hgb 9.1 L Hct 28.3 L POC Hct RDW 14.7 H Neut % (Auto) 86.2 H Lymph % (Auto) 5.7 L [place] % (Auto) Lymph # (Auto) 0.47 L ESR Sodium 129 L Chloride POC BUN BUN 26 H Glucose 379 H POC Glucose Hemoglobin A1c Calcium 8.5 L POC WB Ioniz Calcium Direct Bilirubin 0.4 H Lactate Dehydrogenase C-Reactive Protein Albumin 3.1 L Albumin/Globulin Ratio Cortisol AM Sample 2.5 L 12/25/20 12/25/20 12/25/20 17:38 16:25 05:04 RBC Hgb 10.5 L Hct 33.6 L POC Hct 27 L RDW Neut % (Auto) Lymph % (Auto) [place] % (Auto) Lymph # (Auto) ESR Sodium 130 L Chloride POC BUN 22 H BUN Glucose 179 H POC Glucose 198 H Hemoglobin A1c Calcium POC WB Ioniz Calcium 1.08 L Direct Bilirubin 0.3 H Lactate Dehydrogenase 337 H C-Reactive Protein Albumin Albumin/Globulin Ratio 0.9 L Cortisol AM Sample 12/25/20 12/24/20 12/24/20 05:04 14:50 14:50 RBC 4.12 L Hgb 10.9 L Hct 34.9 L POC Hct RDW 15.2 H Neut % (Auto) Lymph % (Auto) 11.7 L [place] % (Auto) 14.7 H Lymph # (Auto) 0.68 L ESR 43 H Sodium Chloride POC BUN BUN Glucose POC Glucose Hemoglobin A1c 9.2 H Calcium POC WB Ioniz Calcium Direct Bilirubin Lactate Dehydrogenase C-Reactive Protein 4.10 H Albumin Albumin/Globulin Ratio Cortisol AM Sample 12/24/20 12/24/20 14:50 14:50 RBC 4.45 L Hgb 11.9 L Hct 37.9 L POC Hct RDW 15.1 H Neut % (Auto) 81.7 H Lymph % (Auto) 6.6 L [place] % (Auto) Lymph # (Auto) 0.54 L ESR Sodium 128 L Chloride 93 L POC BUN BUN 27 H Glucose 207 H POC Glucose Hemoglobin A1c Calcium POC WB Ioniz Calcium Direct Bilirubin Lactate Dehydrogenase C-Reactive Protein Albumin Albumin/Globulin Ratio Cortisol AM Sample Meds: Medications Acetaminophen (Acetaminophen 325 Mg Tablet) 650 mg PO Q6HP PRN PRN Reason: PAIN/FEVER > 101 Last Admin: 12/26/20 02:40 Dose: 650 mg Documented by: Hydrocodone Bitart/Acetaminophen (Hydrocodone/Apap 5/325mg Tablet) 1 tab PO Q4HP PRN; Protocol PRN Reason: Per Pain Protocol Albuterol/Ipratropium (Ipratropium/Albuterol 3 Ml Ampul.Neb) 3 ml NEB Q4HP PRN PRN Reason: Shortness Of Breath Aspirin (Aspirin 81 Mg Tab.Chew) 81 mg PO DAILY [facility] Last Admin: 12/26/20 09:28 Dose: 81 mg Documented by: Atorvastatin Calcium (Atorvastatin 40 Mg Tablet) 80 mg PO HS [facility] Last Admin: 12/25/20 22:15 Dose: 80 mg Documented by: Bisoprolol Fumarate (Bisoprolol 5 Mg Tablet) 5 mg PO DAILY [facility] Last Admin: 12/26/20 09:28 Dose: 5 mg Documented by: Cefepime HCl (Cefepime 2 Gm Vial) 2 gm IV Q8H [facility] Last Admin: 12/26/20 06:09 Dose: 2 gm Documented by: Cosyntropin (Cosyntropin 0.25 Mg Vial) 0.25 mg IV ONCE ONE Stop: 12/27/20 06:03 Cyclobenzaprine HCl (Cyclobenzaprine 10 Mg Tablet) 10 mg PO [facility] Last Admin: 12/25/20 22:15 Dose: 10 mg Documented by: Dextrose (Dextrose 50% 50 Ml Vial) 0 ml IV UD PRN PRN Reason: Hypoglycemia Diagnostic Test (Pha) (Accu-Chek 1 Each Strip) 1 each FS ACHS [facility] Last Admin: 12/26/20 11:15 Dose: 1 each Documented by: Docusate Sodium (Docusate Sodium 100 Mg Capsule) 100 mg PO BID [facility] Last Admin: 12/26/20 09:28 Dose: 100 mg Documented by: Duloxetine HCl (Duloxetine 30 Mg Capsule) 60 mg PO QHS [facility] Last Admin: 12/25/20 22:15 Dose: 60 mg Documented by: Furosemide (Furosemide 40 Mg Tablet) 40 mg PO QDAY [facility] Last Admin: 12/26/20 09:28 Dose: 40 mg Documented by: Gabapentin (Gabapentin 300 Mg Capsule) 300 mg PO BID [facility] Last Admin: 12/26/20 09:28 Dose: 300 mg Documented by: Glucose (Dextrose 31 Gm Oral.Susp) 15 gm PO PRN PRN PRN Reason: Hypoglycemia Heparin Sodium (Porcine) (Heparin 5,000 Unit/Ml Vial) 5,000 unit SQ Q12 [facility] Last Admin: 12/26/20 09:28 Dose: 5,000 unit Documented by: Potassium Chloride 40 meq/ (Dextrose) 520 mls @ 130 mls/hr IV UD PRN PRN Reason: Potassium < 3 Magnesium Sulfate (Magnesium Sulfate) 2 gm in 50 mls @ 50 mls/hr IV UD PRN PRN Reason: Magnesium </= 1.6 Vancomycin HCl 1,000 mg/ (Sodium Chloride) 250 mls @ 250 mls/hr IV Q12H [facility] Last Infusion: 12/26/20 12:12 Dose: Infused Documented by: Insulin Glargine (Insulin Glargine, Human 1 Unit/0.01 Ml) 10 unit SQ BID [facility] Last Admin: 12/26/20 09:28 Dose: 10 units Documented by: Insulin Human Lispro (Insulin Lispro 1 Unit/0.01 Ml Unit) 0 unit SQ ACHS [facility]; Protocol Last Admin: 12/26/20 11:20 Dose: 12 units Documented by: Lactulose (Lactulose 20 Gm/30 Ml Oral.Nolvia) 20 gm PO DAILYP PRN PRN Reason: Constipation Latanoprost (Latanoprost Ophth Drops 2.5ml Bottle) 1 gtt OU QHS [facility] Last Admin: 12/25/20 23:27 Dose: Not Given Documented by: Meclizine HCl (Meclizine 25 Mg Tablet) 25 mg PO TIDP PRN PRN Reason: Vertigo Metformin HCl (Metformin 500 Mg Tab.Xl.24h) 500 mg PO BIDCC [facility] Last Admin: 12/26/20 07:46 Dose: 500 mg Documented by: Morphine Sulfate (Morphine 2 Mg/Ml Vial) 1 - 3 mg IV Q3HP PRN; Protocol PRN Reason: Per Pain Protocol Last Admin: 12/26/20 10:03 Dose: 2 mg Documented by: Nitroglycerin (Nitroglycerin 0.4 Mg Tab.Subl) 0.4 mg SL Q5M PRN PRN Reason: Chest Pain Ondansetron HCl (Ondansetron 4 Mg/2 Ml Vial) 4 mg IV Q4HP PRN PRN Reason: Nausea And Vomiting Polyethylene Glycol (Polyethylene Glycol 3350 17 Gm Packet) 17 gm PO DAILYP PRN PRN Reason: Constipation Potassium Chloride (Potassium Chloride 20 Meq Tablet) 40 meq PO UD PRN PRN Reason: Potssium is 3-3.5 Potassium Chloride (Potassium Chloride 20 Meq Tablet) 40 meq PO UD PRN PRN Reason: Potassium < 3 Senna (Sennosides 1 Tablet) 2 tab PO DAILYP PRN PRN Reason: Constipation Sodium Chloride (0.9 % Sodium Chloride 10 Ml Syringe) 10 ml IV Q8 [facility] Last Admin: 12/26/20 06:10 Dose: Not Given Documented by: Vancomycin HCl (Vancomycin Per Pharmacy) 1 order IV UD [facility]; Protocol A/P Time Spent With Patient Time: * Vacomycin powder placed and would partially closed to allow drainage * Leave surgical dressings closed, dry, and intact - reinforce as needed for strikethrough bleeding - to be changed POD3 * Will require continued antibiotic therapy
[2020-12-26] MEDS: HYDROcodone/APAP 5/325MG TABLET PO PRN ×2 (16:50→18:30)
[2020-12-26] MEDS: CYCLOBENZAPRINE 10 MG TABLET PO SCH (22:19)
[2020-12-26] MEDS: DULoxetine 30 MG CAPSULE PO SCH (22:19)
[2020-12-26] MEDS: ATORVASTATIN 40 MG TABLET PO SCH (22:20)
[2020-12-26] MEDS: LATANOPROST OPHTH DROPS 2.5ML BOTTLE OU SCH (22:23)
[2020-12-27] MEDS: HYDROcodone/APAP 5/325MG TABLET PO PRN ×3 (02:38→19:53)
[2020-12-27] MEDS: CEFEPIME 2 GM VIAL IV SCH (05:17)
[2020-12-27] MEDS: 0.9 % SODIUM CHLORIDE 10 ML SYRINGE IV SCH ×3 (05:17→22:46)
[2020-12-27] MEDS ORDERED: COSYNTROPIN 0.25 MG VIAL IV ONE (06:02)
[2020-12-27] MEDS: metFORMIN 500 MG TAB.XL.24H PO SCH ×2 (07:23→17:01)
[2020-12-27] MEDS: INSULIN LISPRO 1 UNIT/0.01 ML UNIT SQ SCH ×4 (07:30→21:33)
--- NOTE | 2020-12-27 08:09 | Internal Med Progress Note ---
SUBJECTIVE Subjective Patient information: Note initiated : 12/27/20 at 8:00 am Service Date, if different from initiated Date: [] Patient: Andrew Gonzáles 70 y/o M admitted on 12/24/20 for Right Diabetic Foot Ulcer. Chief Complaint: [] Interval history: History of present illness: Mr. Gonzáles is a 70 year old M Who went to the [facility] care [facility] When he was in there is seen by Dr. Casey who is sentiment to the ED for admission and IV antibiotics and likely partial amputation. Patient denies fevers but complains of chills. Tired. Denies chest pain shortness of breath. In the ED his CBC just showed some chronic anemia. His chemistry showed a hyponatremia of 128 BUN 27 creatinine 1.0. He was started on IV antibiotics in the ED. Sound like an MRI several weeks ago summer but I do not have those results. 12/25 No overnight event or new complaints. 12/26 Patient had transmetatarsal amputation yesterday. Did lose quite a bit of blood during the procedure but follow-up globin stable. 12/27 No overnight event or new complaints. Patient doing well. Cultures growing strep agalactiae. There is a misunderstanding with about the availability of cosyntropin so test is not done today we will have staff perform test tomorrow morning. Review of Systems: denies headache/fever/chills/nausea/vomiting/chest or abdominal pain/cough/dyspnea/diarrhea. Otherwise see above. Constitutional Vitals: Vital Signs Temp Pulse Resp BP Pulse Ox 97.5 F 70 16 100/61 97 12/27/20 07:52 12/27/20 07:52 12/27/20 07:52 12/27/20 07:52 12/27/20 07:52 Period Temp Pulse Resp BP Sys/Hancock Pulse Ox Last 24 Hr 97.5 F-98.1 F 69-89 16-20 77-109/45-68 95-98 Intake and Output 12/26/20 12/27/20 12/27/20 21:59 05:59 13:59 Intake Total 800 890 Output Total 350 100 Balance 450 790 Weight 101.922 kg Intake & Output: Intake & Output 05/29/21 05/30/21 05/30/21 21:59 05:59 13:59 Intake Total 800 890 Output Total 350 100 Balance 450 790 Weight 101.922 kg Intake: IV 250 Vancomycin 1,000 mg In Sodium 250 Chloride 0.9% 250 ml @ 250 mls/ hr IV Q12H [facility] Rx#:[id number] Oral 800 640 Output: Void Amount 350 100 Other: Urine Appearance Clear Urine Color Dark Yellow Stool Size Small Moderate Stool Color Green Brown Stool Consistency Selina Selina # Voids 1 # Bowel Movements 1 Exam: General: Alert, Awake, No acute Distress Eyes/N/T: EOMI,, Head/Neck: neck supple, CV: RRR, No murmurs, Pulm: Clear b/l, no wheezing/rhonchi/rales Abd: soft, nontender, +BS x4 Ext: no clubbing/cyanosis/edema Neuro: Alert, no focal deficits, moves all extremities, decreased sensation lower extremities from neuropathy, right foot dressings in place skin: warm/dry OBJ DATA Labs CBC & Chem 7: 12/27/20 05:42 12/27/20 05:42 Labs: Abnormal Lab Results 12/27/20 12/26/20 12/26/20 05:42 08:11 05:40 RBC Hgb Hct POC Hct RDW Neut % (Auto) Lymph % (Auto) [place] % (Auto) Lymph # (Auto) ESR Sodium 129 L Chloride POC BUN BUN 26 H Glucose 379 H POC Glucose Hemoglobin A1c Calcium 8.5 L POC WB Ioniz Calcium Direct Bilirubin 0.4 H Lactate Dehydrogenase C-Reactive Protein 1.50 H Albumin 3.1 L Albumin/Globulin Ratio Cortisol AM Sample 2.5 L 12/26/20 12/25/20 12/25/20 05:40 17:38 16:25 RBC 3.39 L Hgb 9.1 L 10.5 L Hct 28.3 L 33.6 L POC Hct 27 L RDW 14.7 H Neut % (Auto) 86.2 H Lymph % (Auto) 5.7 L [place] % (Auto) Lymph # (Auto) 0.47 L ESR Sodium Chloride POC BUN 22 H BUN Glucose POC Glucose 198 H Hemoglobin A1c Calcium POC WB Ioniz Calcium 1.08 L Direct Bilirubin Lactate Dehydrogenase C-Reactive Protein Albumin Albumin/Globulin Ratio Cortisol AM Sample 12/25/20 12/25/20 12/24/20 05:04 05:04 14:50 RBC 4.12 L Hgb 10.9 L Hct 34.9 L POC Hct RDW 15.2 H Neut % (Auto) Lymph % (Auto) 11.7 L [place] % (Auto) 14.7 H Lymph # (Auto) 0.68 L ESR 43 H Sodium 130 L Chloride POC BUN BUN Glucose 179 H POC Glucose Hemoglobin A1c Calcium POC WB Ioniz Calcium Direct Bilirubin 0.3 H Lactate Dehydrogenase 337 H C-Reactive Protein Albumin Albumin/Globulin Ratio 0.9 L Cortisol AM Sample 12/24/20 12/24/20 12/24/20 14:50 14:50 14:50 RBC 4.45 L Hgb 11.9 L Hct 37.9 L POC Hct RDW 15.1 H Neut % (Auto) 81.7 H Lymph % (Auto) 6.6 L [place] % (Auto) Lymph # (Auto) 0.54 L ESR Sodium 128 L Chloride 93 L POC BUN BUN 27 H Glucose 207 H POC Glucose Hemoglobin A1c 9.2 H Calcium POC WB Ioniz Calcium Direct Bilirubin Lactate Dehydrogenase C-Reactive Protein 4.10 H Albumin Albumin/Globulin Ratio Cortisol AM Sample Meds: Medications Acetaminophen (Acetaminophen 325 Mg Tablet) 650 mg PO Q6HP PRN PRN Reason: PAIN/FEVER > 101 Last Admin: 12/26/20 18:00 Dose: 650 mg Documented by: Hydrocodone Bitart/Acetaminophen (Hydrocodone/Apap 5/325mg Tablet) 1 tab PO Q4HP PRN; Protocol PRN Reason: Per Pain Protocol Last Admin: 12/27/20 02:38 Dose: 1 tab Documented by: Albuterol/Ipratropium (Ipratropium/Albuterol 3 Ml Ampul.Neb) 3 ml NEB Q4HP PRN PRN Reason: Shortness Of Breath Aspirin (Aspirin 81 Mg Tab.Chew) 81 mg PO DAILY [facility] Last Admin: 12/26/20 09:28 Dose: 81 mg Documented by: Atorvastatin Calcium (Atorvastatin 40 Mg Tablet) 80 mg PO [facility] Last Admin: 12/26/20 22:20 Dose: 80 mg Documented by: Bisoprolol Fumarate (Bisoprolol 5 Mg Tablet) 5 mg PO DAILY [facility] Last Admin: 12/26/20 09:28 Dose: 5 mg Documented by: Cefepime HCl (Cefepime 2 Gm Vial) 2 gm IV Q8H [facility] Last Admin: 12/27/20 05:17 Dose: 2 gm Documented by: Cyclobenzaprine HCl (Cyclobenzaprine 10 Mg Tablet) 10 mg PO HS [facility] Last Admin: 12/26/20 22:19 Dose: 10 mg Documented by: Dextrose (Dextrose 50% 50 Ml Vial) 0 ml IV UD PRN PRN Reason: Hypoglycemia Diagnostic Test (Pha) (Accu-Chek 1 Each Strip) 1 each FS ACHS [facility] Last Admin: 12/27/20 07:24 Dose: 1 each Documented by: Docusate Sodium (Docusate Sodium 100 Mg Capsule) 100 mg PO BID [facility] Last Admin: 12/26/20 22:20 Dose: 100 mg Documented by: Duloxetine HCl (Duloxetine 30 Mg Capsule) 60 mg PO QHS [facility] Last Admin: 12/26/20 22:19 Dose: 60 mg Documented by: Furosemide (Furosemide 40 Mg Tablet) 40 mg PO QDAY [facility] Last Admin: 12/26/20 09:28 Dose: 40 mg Documented by: Gabapentin (Gabapentin 300 Mg Capsule) 300 mg PO BID [facility] Last Admin: 12/26/20 22:23 Dose: 300 mg Documented by: Glucose (Dextrose 31 Gm Oral.Susp) 15 gm PO PRN PRN PRN Reason: Hypoglycemia Heparin Sodium (Porcine) (Heparin 5,000 Unit/Ml Vial) 5,000 unit SQ Q12 [facility] Last Admin: 12/26/20 22:20 Dose: 5,000 unit Documented by: Potassium Chloride 40 meq/ (Dextrose) 520 mls @ 130 mls/hr IV UD PRN PRN Reason: Potassium < 3 Magnesium Sulfate (Magnesium Sulfate) 2 gm in 50 mls @ 50 mls/hr IV UD PRN PRN Reason: Magnesium </= 1.6 Vancomycin HCl 1,000 mg/ (Sodium Chloride) 250 mls @ 250 mls/hr IV Q12H [facility] Last Infusion: 12/26/20 23:46 Dose: Infused Documented by: Insulin Glargine (Insulin Glargine, Human 1 Unit/0.01 Ml) 10 unit SQ BID [facility] Last Admin: 12/26/20 22:21 Dose: 10 units Documented by: Insulin Human Lispro (Insulin Lispro 1 Unit/0.01 Ml Unit) 0 unit SQ ACHS [facility]; Protocol Last Admin: 12/27/20 07:30 Dose: 6 units Documented by: Lactulose (Lactulose 20 Gm/30 Ml Oral.Nolvia) 20 gm PO DAILYP PRN PRN Reason: Constipation Latanoprost (Latanoprost Ophth Drops 2.5ml Bottle) 1 gtt OU QHS [facility] Last Admin: 12/26/20 22:23 Dose: Not Given Documented by: Meclizine HCl (Meclizine 25 Mg Tablet) 25 mg PO TIDP PRN PRN Reason: Vertigo Last Admin: 12/27/20 04:41 Dose: 25 mg Documented by: Metformin HCl (Metformin 500 Mg Tab.Xl.24h) 500 mg PO BIDCC [facility] Last Admin: 12/27/20 07:23 Dose: 500 mg Documented by: Morphine Sulfate (Morphine 2 Mg/Ml Vial) 1 - 3 mg IV Q3HP PRN; Protocol PRN Reason: Per Pain Protocol Last Admin: 12/26/20 10:03 Dose: 2 mg Documented by: Nitroglycerin (Nitroglycerin 0.4 Mg Tab.Subl) 0.4 mg SL Q5M PRN PRN Reason: Chest Pain Ondansetron HCl (Ondansetron 4 Mg/2 Ml Vial) 4 mg IV Q4HP PRN PRN Reason: Nausea And Vomiting Polyethylene Glycol (Polyethylene Glycol 3350 17 Gm Packet) 17 gm PO DAILYP PRN PRN Reason: Constipation Potassium Chloride (Potassium Chloride 20 Meq Tablet) 40 meq PO UD PRN PRN Reason: Potssium is 3-3.5 Potassium Chloride (Potassium Chloride 20 Meq Tablet) 40 meq PO UD PRN PRN Reason: Potassium < 3 Senna (Sennosides 1 Tablet) 2 tab PO DAILYP PRN PRN Reason: Constipation Sodium Chloride (0.9 % Sodium Chloride 10 Ml Syringe) 10 ml IV Q8 [facility] Last Admin: 12/27/20 05:17 Dose: 10 ml Documented by: Vancomycin HCl (Vancomycin Per Pharmacy) 1 order IV UD [facility]; Protocol A/P Narrative A/P Narrative: A: *Right foot diabetic ulcer with infection/Osteomyelitis: s/p TM Amp (12/25) -WC with Strep Agalactiae *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 Garzon following -place PICC/Midline -IV Vanco/cefepime to cefazolin or rocephin if oupt infusions vs SNF -infected bone removed; will treat w/IV abx 14-days (unless Dr. Garzon or Brittni extend) and have pt f/u with Dr. Elkins. -monitor fluid balance closely -cont home lasix -decreased home BB for low bp -basal and SSI -IS - -PT/OT -ppx: Heparin DNR Time Spent With Patient Time: Total time spent is greater than 50% in coordination of care (as d ocumented) at patient's floor/unit and/or counseling patient: QUALITY VTE Deep Vein Thrombosis/Pulmonary Embolism Present on Admission: No
[2020-12-27] MEDS ORDERED: ceFAZolin 2 GM in DEXTROSE 5% IN WATER 50 ML IV SCH (08:15)
[2020-12-27 08:45] LABS: Hematocrit 25.4 % (41.0-55.0); Hemoglobin 8.1 g/dL (13.5-16.5)
[2020-12-27 08:51] LABS: Blood Urea Nitrogen 30 mg/dL (8-23); Calcium 8.4 mg/dL (8.6-10.4); Carbon Dioxide 23 mmol/L (22-30); Chloride 99 mmol/L (96-108); Glomerular Filtration Rate 60; Glucose 219 mg/dL (70-105)
--- NOTE | 2020-12-27 08:55 | Orthopedic Progress Note ---
SUBJECTIVE Subjective Patient information: Note initiated : 12/27/20 at 8:53 am Service Date, if different from initiated Date: [] Patient: Anderw Gonzáles 70 y/o M admitted on 12/24/20 for Right Diabetic Foot Ulcer. Chief Complaint: [foot infection] No interval changes. Constitutional Vitals: Vital Signs Temp Pulse Resp BP Pulse Ox 97.5 F 70 16 100/61 97 12/27/20 07:52 12/27/20 07:52 12/27/20 07:52 12/27/20 07:52 12/27/20 07:52 Period Temp Pulse Resp BP Sys/Hancock Pulse Ox Last 24 Hr 97.5 F-98.1 F 69-89 16-20 77-109/45-68 95-98 Intake and Output 12/26/20 12/27/20 12/27/20 21:59 05:59 13:59 Intake Total 800 890 Output Total 350 100 Balance 450 790 Weight 224 lb 11.2 oz Intake & Output: Intake & Output 12/26/20 12/27/20 12/27/20 21:59 05:59 13:59 Intake Total 800 890 Output Total 350 100 Balance 450 790 Weight 224 lb 11.2 oz Intake: IV 250 Vancomycin 1,000 mg In Sodium 250 Chloride 0.9% 250 ml @ 250 mls/ hr IV Q12H [facility] Rx#:[id number] Oral 800 640 Output: Void Amount 350 100 Other: Meal Breakfast Percent of Meal Consumed 50% Feeding Ability Independent Urine Appearance Clear Urine Color Dark Yellow Stool Size Small Moderate Stool Color Green Brown Stool Consistency Selina Selina # Voids 1 # Bowel Movements 1 OBJ DATA Labs CBC & Chem 7: 12/27/20 05:42 12/27/20 05:42 Labs: Abnormal Lab Results 12/27/20 12/27/20 12/27/20 05:42 05:42 05:42 RBC Hgb 8.1 L Hct 25.4 L POC Hct RDW Neut % (Auto) Lymph % (Auto) [place] % (Auto) Lymph # (Auto) ESR Sodium 132 L Chloride POC BUN BUN 30 H Glucose 219 H POC Glucose Hemoglobin A1c Calcium 8.4 L POC WB Ioniz Calcium Direct Bilirubin Lactate Dehydrogenase C-Reactive Protein 1.50 H Albumin Albumin/Globulin Ratio Cortisol AM Sample 12/26/20 12/26/20 12/26/20 08:11 05:40 05:40 RBC 3.39 L Hgb 9.1 L Hct 28.3 L POC Hct RDW 14.7 H Neut % (Auto) 86.2 H Lymph % (Auto) 5.7 L [place] % (Auto) Lymph # (Auto) 0.47 L ESR Sodium 129 L Chloride POC BUN BUN 26 H Glucose 379 H POC Glucose Hemoglobin A1c Calcium 8.5 L POC WB Ioniz Calcium Direct Bilirubin 0.4 H Lactate Dehydrogenase C-Reactive Protein Albumin 3.1 L Albumin/Globulin Ratio Cortisol AM Sample 2.5 L 12/25/20 12/25/20 12/25/20 17:38 16:25 05:04 RBC Hgb 10.5 L Hct 33.6 L POC Hct 27 L RDW Neut % (Auto) Lymph % (Auto) [place] % (Auto) Lymph # (Auto) ESR Sodium 130 L Chloride POC BUN 22 H BUN Glucose 179 H POC Glucose 198 H Hemoglobin A1c Calcium POC WB Ioniz Calcium 1.08 L Direct Bilirubin 0.3 H Lactate Dehydrogenase 337 H C-Reactive Protein Albumin Albumin/Globulin Ratio 0.9 L Cortisol AM Sample 12/25/20 12/24/20 12/24/20 05:04 14:50 14:50 RBC 4.12 L Hgb 10.9 L Hct 34.9 L POC Hct RDW 15.2 H Neut % (Auto) Lymph % (Auto) 11.7 L [place] % (Auto) 14.7 H Lymph # (Auto) 0.68 L ESR 43 H Sodium Chloride POC BUN BUN Glucose POC Glucose Hemoglobin A1c 9.2 H Calcium POC WB Ioniz Calcium Direct Bilirubin Lactate Dehydrogenase C-Reactive Protein 4.10 H Albumin Albumin/Globulin Ratio Cortisol AM Sample 12/24/20 12/24/20 14:50 14:50 RBC 4.45 L Hgb 11.9 L Hct 37.9 L POC Hct RDW 15.1 H Neut % (Auto) 81.7 H Lymph % (Auto) 6.6 L [place] % (Auto) Lymph # (Auto) 0.54 L ESR Sodium 128 L Chloride 93 L POC BUN BUN 27 H Glucose 207 H POC Glucose Hemoglobin A1c Calcium POC WB Ioniz Calcium Direct Bilirubin Lactate Dehydrogenase C-Reactive Protein Albumin Albumin/Globulin Ratio Cortisol AM Sample Meds: Medications Acetaminophen (Acetaminophen 325 Mg Tablet) 650 mg PO Q6HP PRN PRN Reason: PAIN/FEVER > 101 Last Admin: 12/26/20 18:00 Dose: 650 mg Documented by: Hydrocodone Bitart/Acetaminophen (Hydrocodone/Apap 5/325mg Tablet) 1 tab PO Q4HP PRN; Protocol PRN Reason: Per Pain Protocol Last Admin: 12/27/20 02:38 Dose: 1 tab Documented by: Albuterol/Ipratropium (Ipratropium/Albuterol 3 Ml Ampul.Neb) 3 ml NEB Q4HP PRN PRN Reason: Shortness Of Breath Aspirin (Aspirin 81 Mg Tab.Chew) 81 mg PO DAILY [facility] Last Admin: 12/26/20 09:28 Dose: 81 mg Documented by: Atorvastatin Calcium (Atorvastatin 40 Mg Tablet) 80 mg PO HS [facility] Last Admin: 12/26/20 22:20 Dose: 80 mg Documented by: Bisoprolol Fumarate (Bisoprolol 5 Mg Tablet) 2.5 mg PO DAILY [facility] Cefazolin Sodium (Cefazolin 1 Gm Vial) 2 gm IV Q8H [facility] Cyclobenzaprine HCl (Cyclobenzaprine 10 Mg Tablet) 10 mg PO HS [facility] Last Admin: 12/26/20 22:19 Dose: 10 mg Documented by: Dextrose (Dextrose 50% 50 Ml Vial) 0 ml IV UD PRN PRN Reason: Hypoglycemia Diagnostic Test (Pha) (Accu-Chek 1 Each Strip) 1 each FS ACHS [facility] Last Admin: 12/27/20 07:24 Dose: 1 each Documented by: Docusate Sodium (Docusate Sodium 100 Mg Capsule) 100 mg PO BID [facility] Last Admin: 12/26/20 22:20 Dose: 100 mg Documented by: Duloxetine HCl (Duloxetine 30 Mg Capsule) 60 mg PO QHS [facility] Last Admin: 12/26/20 22:19 Dose: 60 mg Documented by: Furosemide (Furosemide 40 Mg Tablet) 40 mg PO QDAY [facility] Last Admin: 12/26/20 09:28 Dose: 40 mg Documented by: Gabapentin (Gabapentin 300 Mg Capsule) 300 mg PO BID [facility] Last Admin: 12/26/20 22:23 Dose: 300 mg Documented by: Glucose (Dextrose 31 Gm Oral.Susp) 15 gm PO PRN PRN PRN Reason: Hypoglycemia Heparin Sodium (Porcine) (Heparin 5,000 Unit/Ml Vial) 5,000 unit SQ Q12 [facility] Last Admin: 12/26/20 22:20 Dose: 5,000 unit Documented by: Potassium Chloride 40 meq/ (Dextrose) 520 mls @ 130 mls/hr IV UD PRN PRN Reason: Potassium < 3 Magnesium Sulfate (Magnesium Sulfate) 2 gm in 50 mls @ 50 mls/hr IV UD PRN PRN Reason: Magnesium </= 1.6 Insulin Glargine (Insulin Glargine, Human 1 Unit/0.01 Ml) 40 unit SQ BID [facility] Insulin Human Lispro (Insulin Lispro 1 Unit/0.01 Ml Unit) 0 unit SQ ACHS [facility]; Protocol Last Admin: 12/27/20 07:30 Dose: 6 units Documented by: Lactulose (Lactulose 20 Gm/30 Ml Oral.Nolvia) 20 gm PO DAILYP PRN PRN Reason: Constipation Latanoprost (Latanoprost Ophth Drops 2.5ml Bottle) 1 gtt OU QHS [facility] Last Admin: 12/26/20 22:23 Dose: Not Given Documented by: Meclizine HCl (Meclizine 25 Mg Tablet) 25 mg PO TIDP PRN PRN Reason: Vertigo Last Admin: 12/27/20 04:41 Dose: 25 mg Documented by: Metformin HCl (Metformin 500 Mg Tab.Xl.24h) 500 mg PO BIDCC [facility] Last Admin: 12/27/20 07:23 Dose: 500 mg Documented by: Morphine Sulfate (Morphine 2 Mg/Ml Vial) 1 - 3 mg IV Q3HP PRN; Protocol PRN Reason: Per Pain Protocol Last Admin: 12/26/20 10:03 Dose: 2 mg Documented by: Nitroglycerin (Nitroglycerin 0.4 Mg Tab.Subl) 0.4 mg SL Q5M PRN PRN Reason: Chest Pain Ondansetron HCl (Ondansetron 4 Mg/2 Ml Vial) 4 mg IV Q4HP PRN PRN Reason: Nausea And Vomiting Polyethylene Glycol (Polyethylene Glycol 3350 17 Gm Packet) 17 gm PO DAILYP PRN PRN Reason: Constipation Potassium Chloride (Potassium Chloride 20 Meq Tablet) 40 meq PO UD PRN PRN Reason: Potssium is 3-3.5 Potassium Chloride (Potassium Chloride 20 Meq Tablet) 40 meq PO UD PRN PRN Reason: Potassium < 3 Senna (Sennosides 1 Tablet) 2 tab PO DAILYP PRN PRN Reason: Constipation Sodium Chloride (0.9 % Sodium Chloride 10 Ml Syringe) 10 ml IV Q8 [facility] Last Admin: 12/27/20 05:17 Dose: 10 ml Documented by: A/P Time Spent With Patient Time: Leaving dressings closed, dry, and intact. Change POD3 May need wound vac to assist closure / primary granulation
[2020-12-27] MEDS ORDERED: INSULIN GLARGINE, HUMAN 1 UNIT/0.01 ML SQ SCH (09:00)
[2020-12-27] MEDS: FUROSEMIDE 40 MG TABLET PO SCH (09:34)
[2020-12-27] MEDS: BISOPROLOL 5 MG TABLET PO SCH (09:35)
[2020-12-27] MEDS: DOCUSATE SODIUM 100 MG CAPSULE PO SCH ×2 (09:49→21:34)
[2020-12-27] MEDS: ASPIRIN 81 MG TAB.CHEW PO SCH (09:49)
[2020-12-27] MEDS: GABAPENTIN 300 MG CAPSULE PO SCH ×2 (09:49→20:21)
[2020-12-27] MEDS: ceFAZolin 1 GM VIAL IV SCH ×3 (09:49→21:47)
[2020-12-27] MEDS: HEPARIN 5,000 UNIT/ML VIAL SQ SCH ×2 (09:50→21:35)
[2020-12-27] MEDS: INSULIN GLARGINE, HUMAN 1 UNIT/0.01 ML SQ SCH (21:32)
[2020-12-27] MEDS: ATORVASTATIN 40 MG TABLET PO SCH (21:33)
[2020-12-27] MEDS: CYCLOBENZAPRINE 10 MG TABLET PO SCH (21:34)
[2020-12-27] MEDS: DULoxetine 30 MG CAPSULE PO SCH (21:34)
[2020-12-27] MEDS: LATANOPROST OPHTH DROPS 2.5ML BOTTLE OU SCH (21:48)
[2020-12-28] MEDS: HYDROcodone/APAP 5/325MG TABLET PO PRN ×2 (04:17→13:11)
[2020-12-28] MEDS: 0.9 % SODIUM CHLORIDE 10 ML SYRINGE IV SCH ×3 (05:31→21:50)
[2020-12-28] MEDS: ceFAZolin 1 GM VIAL IV SCH ×3 (05:31→21:50)
[2020-12-28] MEDS ORDERED: COSYNTROPIN 0.25 MG VIAL IM ONE (06:00)
[2020-12-28] MEDS ORDERED: COSYNTROPIN 0.25 MG VIAL IV ONE (06:00)
[2020-12-28] MEDS: INSULIN LISPRO 1 UNIT/0.01 ML UNIT SQ SCH ×4 (06:53→21:00)
[2020-12-28 07:56] LABS: Basophils # (Auto) 0.07 K/mcL (0.00-0.20); Basophils % (Auto) 0.7 % (0.0-2.0); Eosinophils % (Auto) 4.2 % (0.0-7.0); Hematocrit 25.1 % (41.0-55.0); Hemoglobin 7.9 g/dL (13.5-16.5); Lymphocytes # (Auto) 1.09 K/mcL (1.50-4.80); Lymphocytes % (Auto) 11.5 % (15.0-49.0); Mean Cell Volume 84.8 fL (80.0-100.0); Mean Corpuscular HGB Conc 31.5 g/dL (31.0-36.0); Mean Platelet Volume 9.3 fL (7.4-10.4); Monocytes # (Auto) 1.27 K/mcL (0.10-0.90); Monocytes % (Auto) 13.4 % (1.0-12.0); Neutrophils % (Auto) 70.2 % (38.0-78.0); Platelet Count 207 K/mcL (140-440); RBC 2.96 M/mcL (4.50-5.90); Red Cell Distribution Width 15.1 % (11.5-14.5); WBC 9.5 K/mcL (4.5-11.0)
[2020-12-28 08:24] LABS: ALT/SGPT 8 U/L (<40); AST/SGOT 20 U/L (<40); Albumin 3.2 gm/dL (3.2-5.2); Albumin/Globulin Ratio 1.1 (1.0-2.3); Alkaline Phosphatase 73 U/L (39-117); Bilirubin,Total 0.3 mg/dL (0.1-1.0); Blood Urea Nitrogen 23 mg/dL (8-23); Calcium 8.4 mg/dL (8.6-10.4); Carbon Dioxide 24 mmol/L (22-30); Chloride 103 mmol/L (96-108); Globulin 2.9 gm/dL (2.2-3.7); Glomerular Filtration Rate 90; Glucose 86 mg/dL (70-105)
[2020-12-28] MEDS: INSULIN GLARGINE, HUMAN 1 UNIT/0.01 ML SQ SCH ×2 (09:42→21:49)
[2020-12-28] MEDS: DOCUSATE SODIUM 100 MG CAPSULE PO SCH ×3 (09:42→21:50)
[2020-12-28] MEDS: ASPIRIN 81 MG TAB.CHEW PO SCH (09:42)
[2020-12-28] MEDS: GABAPENTIN 300 MG CAPSULE PO SCH ×2 (09:42→21:50)
[2020-12-28] MEDS: BISOPROLOL 5 MG TABLET PO SCH (09:43)
[2020-12-28] MEDS: HEPARIN 5,000 UNIT/ML VIAL SQ SCH ×2 (09:43→21:49)
[2020-12-28] MEDS: metFORMIN 500 MG TAB.XL.24H PO SCH ×2 (09:43→17:25)
--- NOTE | 2020-12-28 14:57 | Internal Med Progress Note ---
SUBJECTIVE Subjective Patient information: Note initiated : 12/28/20 at 2:42 pm Service Date, if different from initiated Date: [] Patient: Andrew Gonzáles 70 y/o M admitted on 12/24/20 for Right Diabetic Foot Ulcer. Chief Complaint: [right diabetic foot ulcer] History of present illness: Mr. Gonzáles is a 70 year old M Who went [facility] When he was in there is seen by Dr. Casey who is sentiment to the ED for admission and IV antibiotics and likely partial amputation. Patient denies fevers but complains of chills. Tired. Denies chest pain shortness of breath. In the ED his CBC just showed some chronic anemia. His chemistry showed a hyponatremia of 128 BUN 27 creatinine 1.0. He was started on IV antibiotics in the ED. Sound like an MRI several weeks ago summer but I do not have those results. 12/25 No overnight event or new complaints. 12/26 Patient had transmetatarsal amputation yesterday. Did lose quite a bit of blood during the procedure but follow-up globin stable. 12/27 No overnight event or new complaints. Patient doing well. Cultures growing strep agalactiae. There is a misunderstanding with about the availability of cosyntropin so test is not done today we will have staff perform test tomorrow morning. 12/28: No overnight event or new complaints. Patient doing well. Denies any right foot pain. Denies any fever, chills, or sweating. Wound culture grew Group B strep and Coagulase negative staph. Constitutional Vitals: Vital Signs Temp Pulse Resp BP Pulse Ox 36.6 C 79 18 101/62 95 12/28/20 11:50 12/28/20 11:50 12/28/20 11:50 12/28/20 11:50 12/28/20 11:50 Period Temp Pulse Resp BP Sys/Hancock Pulse Ox Last 24 Hr 36.2 C-36.7 C 79-90 14-20 95-125/60-72 95-98 Intake and Output 12/28/20 12/28/20 12/28/20 05:59 13:59 21:59 Intake Total 400 480 Output Total 300 225 Balance 100 255 Intake & Output: Intake & Output 12/28/20 12/28/20 12/28/20 05:59 13:59 21:59 Intake Total 400 480 Output Total 300 225 Balance 100 255 Intake: Oral 400 480 Output: Void Amount 300 225 Other: Meal Lunch Percent of Meal Consumed 75% Feeding Ability Independent Urine Appearance Clear Urine Color Bright Yellow Dark Bel Urine Odor [place] General appearance: cooperative and no acute distress Head Head exam: Present atraumatic and normocephalic Eye Eye exam: Present EOMI and PERRL ENT ENT exam: Present mucous membranes moist, normal exam and normal external ear exam Neck Neck exam: Present normal inspection; Absent lymphadenopathy, tenderness and thyromegaly Respiratory Respiratory exam: Absent accessory muscle use, respiratory distress and wheezes Cardiovascular Cardiovascular exam: Present normal rate and rhythm; Absent JVD GI/Abdominal GI/Abdominal exam: Present normal bowel sounds and soft; Absent organomegaly and tenderness Rectal Rectal exam: Present deferred Extremities Exam Extremities exam: Present full ROM and normal capillary refill; Absent normal inspection and tenderness Additional comments: Right foot in surgical dressing. Neurological Exam Neurological exam: Present alert, CN II-XII intact and oriented X3; Absent motor sensory deficit Psychiatric Psychiatric exam: Present normal affect and normal mood; Absent anxious and depressed Skin Skin exam: Present dry and intact OBJ DATA Labs CBC & Chem 7: 12/28/20 06:10 12/28/20 06:10 Labs: Abnormal Lab Results 12/28/20 12/28/20 12/27/20 06:10 06:10 05:42 RBC 2.96 L Hgb 7.9 L Hct 25.1 L POC Hct RDW 15.1 H Neut % (Auto) Lymph % (Auto) 11.5 L Roberts % (Auto) 13.4 H Lymph # (Auto) 1.09 L Roberts # (Auto) 1.27 H ESR Sodium 132 L POC BUN BUN 30 H Glucose 219 H POC Glucose Calcium 8.4 L 8.4 L POC WB Ioniz Calcium Direct Bilirubin C-Reactive Protein Albumin Cortisol AM Sample 12/27/20 12/27/20 12/27/20 05:42 05:42 05:42 RBC Hgb 8.1 L Hct 25.4 L POC Hct RDW Neut % (Auto) Lymph % (Auto) Roberts % (Auto) Lymph # (Auto) Roberts # (Auto) ESR 27 H Sodium POC BUN BUN Glucose POC Glucose Calcium POC WB Ioniz Calcium Direct Bilirubin C-Reactive Protein 1.50 H Albumin Cortisol AM Sample 12/26/20 12/26/20 12/26/20 08:11 05:40 05:40 RBC 3.39 L Hgb 9.1 L Hct 28.3 L POC Hct RDW 14.7 H Neut % (Auto) 86.2 H Lymph % (Auto) 5.7 L Roberts % (Auto) Lymph # (Auto) 0.47 L Roberts # (Auto) ESR Sodium 129 L POC BUN BUN 26 H Glucose 379 H POC Glucose Calcium 8.5 L POC WB Ioniz Calcium Direct Bilirubin 0.4 H C-Reactive Protein Albumin 3.1 L Cortisol AM Sample 2.5 L 12/25/20 12/25/20 17:38 16:25 RBC Hgb 10.5 L Hct 33.6 L POC Hct 27 L RDW Neut % (Auto) Lymph % (Auto) Roberts % (Auto) Lymph # (Auto) Roberts # (Auto) ESR Sodium POC BUN 22 H BUN Glucose POC Glucose 198 H Calcium POC WB Ioniz Calcium 1.08 L Direct Bilirubin C-Reactive Protein Albumin Cortisol AM Sample Meds: Medications Acetaminophen (Acetaminophen 325 Mg Tablet) 650 mg PO Q6HP PRN PRN Reason: PAIN/FEVER > 101 Last Admin: 12/26/20 18:00 Dose: 650 mg Documented by: Hydrocodone Bitart/Acetaminophen (Hydrocodone/Apap 5/325mg Tablet) 1 tab PO Q4HP PRN; Protocol PRN Reason: Per Pain Protocol Last Admin: 12/28/20 13:11 Dose: 1 tab Documented by: Albuterol/Ipratropium (Ipratropium/Albuterol 3 Ml Ampul.Neb) 3 ml NEB Q4HP PRN PRN Reason: Shortness Of Breath Aspirin (Aspirin 81 Mg Tab.Chew) 81 mg PO DAILY [facility] Last Admin: 12/28/20 09:42 Dose: 81 mg Documented by: Atorvastatin Calcium (Atorvastatin 40 Mg Tablet) 80 mg PO HS [facility] Last Admin: 12/27/20 21:33 Dose: 80 mg Documented by: Bisoprolol Fumarate (Bisoprolol 5 Mg Tablet) 2.5 mg PO DAILY [facility] Last Admin: 12/28/20 09:43 Dose: 2.5 mg Documented by: Cefazolin Sodium (Cefazolin 1 Gm Vial) 2 gm IV Q8H [facility] Last Admin: 12/28/20 05:31 Dose: 2 gm Documented by: Cyclobenzaprine HCl (Cyclobenzaprine 10 Mg Tablet) 10 mg PO HS [facility] Last Admin: 12/27/20 21:34 Dose: 10 mg Documented by: Dextrose (Dextrose 50% 50 Ml Vial) 0 ml IV UD PRN PRN Reason: Hypoglycemia Diagnostic Test (Pha) (Accu-Chek 1 Each Strip) 1 each FS ACHS [facility] Last Admin: 12/28/20 11:31 Dose: 1 each Documented by: Docusate Sodium (Docusate Sodium 100 Mg Capsule) 100 mg PO BID [facility] Last Admin: 12/28/20 09:45 Dose: Not Given Documented by: Duloxetine HCl (Duloxetine 30 Mg Capsule) 60 mg PO QHS [facility] Last Admin: 12/27/20 21:34 Dose: 60 mg Documented by: Furosemide (Furosemide 40 Mg Tablet) 40 mg PO QDAY [facility] Gabapentin (Gabapentin 300 Mg Capsule) 300 mg PO BID [facility] Last Admin: 12/28/20 09:42 Dose: 300 mg Documented by: Glucose (Dextrose 31 Gm Oral.Susp) 15 gm PO PRN PRN PRN Reason: Hypoglycemia Heparin Sodium (Porcine) (Heparin 5,000 Unit/Ml Vial) 5,000 unit SQ Q12 [facility] Last Admin: 12/28/20 09:43 Dose: 5,000 unit Documented by: Potassium Chloride 40 meq/ (Dextrose) 520 mls @ 130 mls/hr IV UD PRN PRN Reason: Potassium < 3 Magnesium Sulfate (Magnesium Sulfate) 2 gm in 50 mls @ 50 mls/hr IV UD PRN PRN Reason: Magnesium </= 1.6 Insulin Glargine (Insulin Glargine, Human 1 Unit/0.01 Ml) 45 unit SQ BID [facility] Last Admin: 12/28/20 09:42 Dose: 45 units Documented by: Insulin Human Lispro (Insulin Lispro 1 Unit/0.01 Ml Unit) 0 unit SQ [facility]; Protocol Last Admin: 12/28/20 11:32 Dose: 6 units Documented by: Lactulose (Lactulose 20 Gm/30 Ml Oral.Nolvia) 20 gm PO DAILYP PRN PRN Reason: Constipation Latanoprost (Latanoprost Ophth Drops 2.5ml Bottle) 1 gtt OU QHS [facility] Last Admin: 12/27/20 21:48 Dose: Not Given Documented by: Meclizine HCl (Meclizine 25 Mg Tablet) 25 mg PO TIDP PRN PRN Reason: Vertigo Last Admin: 12/27/20 04:41 Dose: 25 mg Documented by: Metformin HCl (Metformin 500 Mg Tab.Xl.24h) 500 mg PO BIDCC [facility] Last Admin: 12/28/20 09:43 Dose: 500 mg Documented by: Morphine Sulfate (Morphine 2 Mg/Ml Vial) 1 - 3 mg IV Q3HP PRN; Protocol PRN Reason: Per Pain Protocol Last Admin: 12/26/20 10:03 Dose: 2 mg Documented by: Nitroglycerin (Nitroglycerin 0.4 Mg Tab.Subl) 0.4 mg SL Q5M PRN PRN Reason: Chest Pain Ondansetron HCl (Ondansetron 4 Mg/2 Ml Vial) 4 mg IV Q4HP PRN PRN Reason: Nausea And Vomiting Polyethylene Glycol (Polyethylene Glycol 3350 17 Gm Packet) 17 gm PO DAILYP PRN PRN Reason: Constipation Potassium Chloride (Potassium Chloride 20 Meq Tablet) 40 meq PO UD PRN PRN Reason: Potssium is 3-3.5 Potassium Chloride (Potassium Chloride 20 Meq Tablet) 40 meq PO UD PRN PRN Reason: Potassium < 3 Senna (Sennosides 1 Tablet) 2 tab PO DAILYP PRN PRN Reason: Constipation Sodium Chloride (0.9 % Sodium Chloride 10 Ml Syringe) 10 ml IV Q8 [facility] Last Admin: 12/28/20 05:31 Dose: 10 ml Documented by: A/P Assessment and plan (1) Diabetic ulcer of right foot: Status: Acute (2) T2DM (type 2 diabetes mellitus): Status: Acute (3) Diabetic neuropathy: Status: Acute (4) Essential (primary) hypertension: Status: Acute (5) Combined congestive systolic and diastolic heart failure: Status: Acute (6) Anemia, normocytic normochromic: Status: Acute Narrative A/P Narrative: 1. T2DM with diabetic neuropathy and right diabetic foot: HgA1c 9.[address] Garzon performed transmetatarsal amputation on 12/26 and also doing post-surgical dressing change Lantus 45 unit SQ BID for better glycemic control Metformin BID Sliding scale insulin AC HS Accu Chek AC HS Tylenol PRN fever Ancef for now, will switch to Rocephin upon hospital discharge until 01/08 Gabapentin 300mg PO BID [place] PRN moderate pain Morphine IV PRN severe pain Medline insertion for IV antibiotics therapy Recommend SNF placement for rehab and IV antibiotics therapy but patient refused; would prefer outpatient infusion therapy instead f/u Dr. Garzon and Dr. Elkins upon discharge 2. Combined CHF: Bisoprolol Lasix 3. Essential HTN: Bisoprolol 4. Anemia, normocytic normochromic: cbc w/ auto diff daily to trend H/H; transfuse pRBC if hemoglobin <7.0, active bleeding, or symptomatic 5. Hyponatremia: Resolved Pending ACTH stimulation test to look for adrenal insufficiency GI ppx: not currently indicated DVT ppx: heparin Code status: DNI DNR Prognosis: stable Disposition: inpatient med surg Time Spent With Patient Time: Total time spent is greater than 50% in coordination of care (as d ocumented) at patient's floor/unit and/or counseling patient: QUALITY VTE Deep Vein Thrombosis/Pulmonary Embolism Present on Admission: No
[2020-12-28] MEDS ORDERED: CYCLOBENZAPRINE 10 MG TABLET PO PRN (15:14)
[2020-12-28] MEDS: CYCLOBENZAPRINE 10 MG TABLET PO SCH (21:50)
[2020-12-28] MEDS: ATORVASTATIN 40 MG TABLET PO SCH (21:50)
[2020-12-28] MEDS: DULoxetine 30 MG CAPSULE PO SCH (21:50)
[2020-12-29] MEDS: LATANOPROST OPHTH DROPS 2.5ML BOTTLE OU SCH ×2 (01:01→19:22)
[2020-12-29] MEDS: ceFAZolin 1 GM VIAL IV SCH ×3 (05:00→21:38)
[2020-12-29] MEDS: 0.9 % SODIUM CHLORIDE 10 ML SYRINGE IV SCH ×4 (05:01→21:38)
--- NOTE | 2020-12-29 07:44 | Operative Note ---
DATE OF OPERATION: 12/25/2020 PREOPERATIVE DIAGNOSIS: Cellulitis with abscess and osteomyelitis of the right foot. POSTOPERATIVE DIAGNOSIS: Cellulitis with abscess and osteomyelitis of the right foot. PROCEDURE: Transmetatarsal amputation of the right foot. IMPLANTS: None. ANESTHESIA: GETA. COMPLICATIONS: None. BLOOD LOSS: 500 mL. SPECIMEN: Bone for pathology and bone culture, deep tissue culture. CONDITION: Fair. DISPOSITION: Floor. DESCRIPTION OF PROCEDURE: The patient was brought to the operating room and placed on the operating table in the supine position. Right lower extremity was scrubbed, prepped and draped in the usual aseptic fashion. General anesthesia was initiated. A fishmouth incision was created full thickness. There is noted to be malodorous purulent draining wound off the medial first metatarsophalangeal joint, which probed to the plantar aspect of the foot and communicated through these wounds. The tissue was then reflected in a parabola type and an osteotomy was created through each metatarsal. There was abundant bleeding noted consistent with preoperative assessment of calcification of vessels. Vessels were tied and cauterized as encountered. Plantar aspect of the bones were rasped smooth with a rongeur and rasp. Copious amounts of sterile saline irrigated the foot. It was loosely sutured in place with #2 nylon retaining sutures, the wound packed open, Xeroform applied, 4 x 4 gauze, ABD pad, Coban, and Davey wrap under moderate compression. The patient tolerated the procedure moderately well and will be monitored for blood loss in the postoperative care unit, will be managed there and then returned to the floor for continued treatment and antibiotic therapy. [email or web address]:aleks Job ID: [id number] Doc ID: [id number] Albert Garzon DPM
[2020-12-29] MEDS: ASPIRIN 81 MG TAB.CHEW PO SCH (08:46)
[2020-12-29] MEDS: FUROSEMIDE 40 MG TABLET PO SCH (08:46)
[2020-12-29] MEDS: GABAPENTIN 300 MG CAPSULE PO SCH ×2 (08:46→21:36)
[2020-12-29] MEDS: BISOPROLOL 5 MG TABLET PO SCH (08:46)
[2020-12-29] MEDS: HEPARIN 5,000 UNIT/ML VIAL SQ SCH ×2 (08:46→21:36)
[2020-12-29] MEDS: metFORMIN 500 MG TAB.XL.24H PO SCH ×2 (08:46→17:25)
[2020-12-29] MEDS: DOCUSATE SODIUM 100 MG CAPSULE PO SCH ×2 (08:46→19:20)
[2020-12-29] MEDS: INSULIN LISPRO 1 UNIT/0.01 ML UNIT SQ SCH ×4 (08:50→21:37)
[2020-12-29] MEDS: INSULIN GLARGINE, HUMAN 1 UNIT/0.01 ML SQ SCH ×2 (08:54→21:37)
[2020-12-29 09:58] LABS: Basophils # (Auto) 0.06 K/mcL (0.00-0.20); Basophils % (Auto) 0.6 % (0.0-2.0); Eosinophils # (Auto) 0.33 K/mcL (0.00-0.70); Eosinophils % (Auto) 3.2 % (0.0-7.0); Hematocrit 25.8 % (41.0-55.0); Hemoglobin 7.9 g/dL (13.5-16.5); Lymphocytes # (Auto) 1.19 K/mcL (1.50-4.80); Lymphocytes % (Auto) 11.5 % (15.0-49.0); Mean Cell Volume 86.9 fL (80.0-100.0); Mean Corpuscular HGB Conc 30.6 g/dL (31.0-36.0); Mean Platelet Volume 9.4 fL (7.4-10.4); Monocytes # (Auto) 1.19 K/mcL (0.10-0.90); Monocytes % (Auto) 11.5 % (1.0-12.0); Neutrophils % (Auto) 73.2 % (38.0-78.0); Platelet Count 224 K/mcL (140-440); RBC 2.97 M/mcL (4.50-5.90); Red Cell Distribution Width 15.5 % (11.5-14.5); WBC 10.4 K/mcL (4.5-11.0)
[2020-12-29 10:08] LABS: ALT/SGPT 6 U/L (<40); AST/SGOT 23 U/L (<40); Albumin/Globulin Ratio 0.9 (1.0-2.3); Alkaline Phosphatase 76 U/L (39-117); Bilirubin,Total 0.5 mg/dL (0.1-1.0); Blood Urea Nitrogen 18 mg/dL (8-23); Calcium 8.7 mg/dL (8.6-10.4); Carbon Dioxide 24 mmol/L (22-30); Chloride 100 mmol/L (96-108); Globulin 3.3 gm/dL (2.2-3.7); Glomerular Filtration Rate 89; Glucose 72 mg/dL (70-105); Iron 30 ug/dL (61-157); TIBC Calculation 239 ug/dl (228-428); Transferrin % Saturation 13 % (20-50)
--- NOTE | 2020-12-29 12:24 | Internal Med Progress Note ---
SUBJECTIVE Subjective Patient information: Note initiated : 12/29/20 at 12:19 pm Service Date, if different from initiated Date: [] Patient: Andrew Gonzáles 70 y/o M admitted on 12/24/20 for Right Diabetic Foot Ulcer. Chief Complaint: [] Interval history: History of present illness: Mr. Gonzáles is a 70 year old M Who went [facility] the [facility] When he was in there is seen by Dr. Casey who is sentiment to the ED for admission and IV antibiotics and likely partial amputation. Patient denies fevers but complains of chills. Tired. Denies chest pain shortness of breath. In the ED his CBC just showed some chronic anemia. His chemistry showed a hyponatremia of 128 BUN 27 creatinine 1.0. He was started on IV antibiotics in the ED. Sound like an MRI several weeks ago summer but I do not have those results. 12/25 No overnight event or new complaints. 12/26 Patient had transmetatarsal amputation yesterday. Did lose quite a bit of blood during the procedure but follow-up globin stable. 12/27 No overnight event or new complaints. Patient doing well. Cultures growing strep agalactiae. There is a misunderstanding with about the availability of cosyntropin so test is not done today we will have staff perform test tomorrow morning. 12/29: Patient refused to have the midline inserted. He is also not sure if he could afford to receive the IV antibiotics therapy. Review of Systems: denies headache/fever/chills/nausea/vomiting/chest or abdominal pain/cough/dyspnea/diarrhea. Otherwise see above. Constitutional Vitals: Vital Signs Temp Pulse Resp BP Pulse Ox 36.7 C 90 12 104/62 94 12/29/20 07:48 12/29/20 07:48 12/29/20 07:48 12/29/20 07:48 12/29/20 07:48 Period Temp Pulse Resp BP Sys/Hancock Pulse Ox Last 24 Hr 36.7 C-37.1 C 80-90 12-16 97-109/51-65 94-97 Intake and Output 12/28/20 12/29/20 12/29/20 21:59 05:59 13:59 Intake Total 400 Output Total 200 225 200 Balance -200 175 -200 Weight 103.737 kg Intake & Output: Intake & Output 12/28/20 12/29/20 12/29/20 21:59 05:59 13:59 Intake Total 400 Output Total 200 225 200 Balance -200 175 -200 Weight 103.737 kg Intake: Oral 400 Output: Void Amount 200 225 200 Other: Meal Breakfast Percent of Meal Consumed 75% Feeding Ability Independent Urine Appearance Clear Clear Clear Urine Color Bright Yellow Dark Yellow Dark Yellow Urine Odor [place] General appearance: cooperative and no acute distress Exam: General: Alert, Awake, No acute Distress Eyes/N/T: EOMI,, Head/Neck: neck supple, CV: RRR, No murmurs, Pulm: Clear b/l, no wheezing/rhonchi/rales Abd: soft, nontender, +BS x4 Ext: no clubbing/cyanosis/edema Neuro: Alert, no focal deficits, moves all extremities, decreased sensation lower extremities from neuropathy, right foot dressings in place skin: warm/dry Head Head exam: Present atraumatic and normocephalic Eye Eye exam: Present EOMI and PERRL ENT ENT exam: Present mucous membranes moist, normal exam and normal external ear exam Neck Neck exam: Present normal inspection; Absent lymphadenopathy, tenderness and thyromegaly Respiratory Respiratory exam: Absent accessory muscle use, respiratory distress and wheezes Cardiovascular Cardiovascular exam: Present normal rate and rhythm; Absent JVD GI/Abdominal GI/Abdominal exam: Present normal bowel sounds and soft; Absent organomegaly and tenderness Rectal Rectal exam: Present deferred Extremities Exam Extremities exam: Present full ROM, normal capillary refill and normal inspection; Absent tenderness Additional comments: Right foot covered in surgical dressing Neurological Exam Neurological exam: Present alert, CN II-XII intact and oriented X3; Absent motor sensory deficit Psychiatric Psychiatric exam: Present normal affect and normal mood; Absent anxious and depressed Skin Skin exam: Present dry and intact OBJ DATA Labs CBC & Chem 7: 12/29/20 05:50 12/29/20 05:50 Labs: Abnormal Lab Results 12/29/20 12/29/20 12/28/20 05:50 05:50 06:10 RBC 2.97 L Hgb 7.9 L Hct 25.8 L MCHC 30.6 L RDW 15.5 H Lymph % (Auto) 11.5 L [place] % (Auto) Lymph # (Auto) 1.19 L [place] # (Auto) 1.19 H ESR Sodium BUN Glucose Calcium 8.4 L Iron 30 L Transferrin % Sat 13 L C-Reactive Protein Albumin 3.0 L Albumin/Globulin Ratio 0.9 L 12/28/20 12/27/20 12/27/20 06:10 05:42 05:42 RBC 2.96 L Hgb 7.9 L 8.1 L Hct 25.1 L 25.4 L MCHC RDW 15.1 H Lymph % (Auto) 11.5 L [place] % (Auto) 13.4 H Lymph # (Auto) 1.09 L [place] # (Auto) 1.27 H ESR Sodium 132 L BUN 30 H Glucose 219 H Calcium 8.4 L Iron Transferrin % Sat C-Reactive Protein Albumin Albumin/Globulin Ratio 12/27/20 12/27/20 05:42 05:42 RBC Hgb Hct MCHC RDW Lymph % (Auto) [place] % (Auto) Lymph # (Auto) [place] # (Auto) ESR 27 H Sodium BUN Glucose Calcium Iron Transferrin % Sat C-Reactive Protein 1.50 H Albumin Albumin/Globulin Ratio Meds: Medications Acetaminophen (Acetaminophen 325 Mg Tablet) 650 mg PO Q6HP PRN PRN Reason: PAIN/FEVER > 101 Last Admin: 12/26/20 18:00 Dose: 650 mg Documented by: Hydrocodone Bitart/Acetaminophen (Hydrocodone/Apap 5/325mg Tablet) 1 tab PO Q4HP PRN; Protocol PRN Reason: Per Pain Protocol Last Admin: 12/28/20 13:11 Dose: 1 tab Documented by: Albuterol/Ipratropium (Ipratropium/Albuterol 3 Ml Ampul.Neb) 3 ml NEB Q4HP PRN PRN Reason: Shortness Of Breath Aspirin (Aspirin 81 Mg Tab.Chew) 81 mg PO DAILY [facility] Last Admin: 12/29/20 08:46 Dose: 81 mg Documented by: Atorvastatin Calcium (Atorvastatin 40 Mg Tablet) 80 mg PO HS [facility] Last Admin: 12/28/20 21:50 Dose: 80 mg Documented by: Bisoprolol Fumarate (Bisoprolol 5 Mg Tablet) 2.5 mg PO DAILY [facility] Last Admin: 12/29/20 08:46 Dose: Not Given Documented by: Cefazolin Sodium (Cefazolin 1 Gm Vial) 2 gm IV Q8H [facility] Last Admin: 12/29/20 05:00 Dose: 2 gm Documented by: Cyclobenzaprine HCl (Cyclobenzaprine 10 Mg Tablet) 10 mg PO HS [facility] Last Admin: 12/28/20 21:50 Dose: 10 mg Documented by: Dextrose (Dextrose 50% 50 Ml Vial) 0 ml IV UD PRN PRN Reason: Hypoglycemia Diagnostic Test (Pha) (Accu-Chek 1 Each Strip) 1 each FS [facility] Last Admin: 12/29/20 11:23 Dose: 1 each Documented by: Docusate Sodium (Docusate Sodium 100 Mg Capsule) 100 mg PO BID [facility] Last Admin: 12/29/20 08:46 Dose: 100 mg Documented by: Duloxetine HCl (Duloxetine 30 Mg Capsule) 60 mg PO QHS [facility] Last Admin: 12/28/20 21:50 Dose: 60 mg Documented by: Furosemide (Furosemide 40 Mg Tablet) 40 mg PO QDAY [facility] Last Admin: 12/29/20 08:46 Dose: Not Given Documented by: Gabapentin (Gabapentin 300 Mg Capsule) 300 mg PO BID [facility] Last Admin: 12/29/20 08:46 Dose: 300 mg Documented by: Glucose (Dextrose 31 Gm Oral.Susp) 15 gm PO PRN PRN PRN Reason: Hypoglycemia Heparin Sodium (Porcine) (Heparin 5,000 Unit/Ml Vial) 5,000 unit SQ Q12 [facility] Last Admin: 12/29/20 08:46 Dose: 5,000 unit Documented by: Potassium Chloride 40 meq/ (Dextrose) 520 mls @ 130 mls/hr IV UD PRN PRN Reason: Potassium < 3 Magnesium Sulfate (Magnesium Sulfate) 2 gm in 50 mls @ 50 mls/hr IV UD PRN PRN Reason: Magnesium </= 1.6 Insulin Glargine (Insulin Glargine, Human 1 Unit/0.01 Ml) 45 unit SQ BID [facility] Last Admin: 12/29/20 08:54 Dose: 45 units Documented by: Insulin Human Lispro (Insulin Lispro 1 Unit/0.01 Ml Unit) 0 unit SQ [facility]; Protocol Last Admin: 12/29/20 11:25 Dose: Not Given Documented by: Lactulose (Lactulose 20 Gm/30 Ml Oral.Nolvia) 20 gm PO DAILYP PRN PRN Reason: Constipation Latanoprost (Latanoprost Ophth Drops 2.5ml Bottle) 1 gtt OU QHS [facility] Last Admin: 12/29/20 01:01 Dose: Not Given Documented by: Meclizine HCl (Meclizine 25 Mg Tablet) 25 mg PO TIDP PRN PRN Reason: Vertigo Last Admin: 12/27/20 04:41 Dose: 25 mg Documented by: Metformin HCl (Metformin 500 Mg Tab.Xl.24h) 500 mg PO BIDCC [facility] Last Admin: 12/29/20 08:46 Dose: 500 mg Documented by: Morphine Sulfate (Morphine 2 Mg/Ml Vial) 1 - 3 mg IV Q3HP PRN; Protocol PRN Reason: Per Pain Protocol Last Admin: 12/26/20 10:03 Dose: 2 mg Documented by: Nitroglycerin (Nitroglycerin 0.4 Mg Tab.Subl) 0.4 mg SL Q5M PRN PRN Reason: Chest Pain Ondansetron HCl (Ondansetron 4 Mg/2 Ml Vial) 4 mg IV Q4HP PRN PRN Reason: Nausea And Vomiting Polyethylene Glycol (Polyethylene Glycol 3350 17 Gm Packet) 17 gm PO DAILYP PRN PRN Reason: Constipation Potassium Chloride (Potassium Chloride 20 Meq Tablet) 40 meq PO UD PRN PRN Reason: Potssium is 3-3.5 Potassium Chloride (Potassium Chloride 20 Meq Tablet) 40 meq PO UD PRN PRN Reason: Potassium < 3 Senna (Sennosides 1 Tablet) 2 tab PO DAILYP PRN PRN Reason: Constipation Sodium Chloride (0.9 % Sodium Chloride 10 Ml Syringe) 10 ml IV Q8 [facility] Last Admin: 12/29/20 05:01 Dose: 10 ml Documented by: A/P Assessment and plan (1) Diabetic ulcer of right foot: Status: Acute (2) T2DM (type 2 diabetes mellitus): Status: Acute (3) Diabetic neuropathy: Status: Acute (4) Essential (primary) hypertension: Status: Acute (5) Combined congestive systolic and diastolic heart failure: Status: Acute (6) Anemia, normocytic normochromic: Status: Acute Narrative A/P Narrative: 1. T2DM with diabetic neuropathy and right diabetic foot: HgA1c 9.[address] Garzon performed transmetatarsal amputation on 12/26 and also doing post-surgical dressing change Lantus 45 unit SQ BID for better glycemic control Metformin BID Sliding scale insulin AC HS Accu Chek AC HS Tylenol PRN fever Ancef for now, will switch to Rocephin upon hospital discharge until 6/11 Gabapentin 300mg PO BID [place] PRN moderate pain Morphine IV PRN severe pain Medline insertion for IV antibiotics therapy Recommend SNF placement for rehab and IV antibiotics therapy but patient refused; would prefer outpatient infusion therapy instead f/u Dr. Garzon and Dr. Elkins upon discharge Consult social science research assistant for exploring options for discharge locations and how he could afford IV antibiotics therapy 2. Combined CHF: Bisoprolol Lasix 3. Essential HTN: Bisoprolol 4. Anemia, normocytic normochromic: cbc w/ auto diff daily to trend H/H; transfuse pRBC if hemoglobin <7.0, active bleeding, or symptomatic 5. Hyponatremia: Resolved Pending ACTH stimulation test to look for adrenal insufficiency GI ppx: not currently indicated DVT ppx: heparin Code status: DNI DNR Prognosis: stable Disposition: inpatient med surg Time Spent With Patient Time: Total time spent is greater than 50% in coordination of care (as documented) at patient's floor/unit and/or counseling patient: QUALITY VTE Deep Vein Thrombosis/Pulmonary Embolism Present on Admission: No
--- NOTE | 2020-12-29 14:40 | Surgical Pathology Report ---
Histology Microscopic Diagnosis Specimen A- FOOT, RIGHT, TRANSMETATARSAL AMPUTATION: --- EPIDERMAL ULCERATION, ABSCESS AND ACUTE OSTEOMYELITIS. --- MARGINS VIABLE AND FREE OF OSTEOMYELITIS. (RLF:sln) Clinical History Non-healing right foot ulcer. Procedural Impression Cellulitis with abscess; osteomyelitis. Gross Description Received in formalin labeled right foot, is a distal foot amputation measuring 10.5 x 10.5 x 3.5 cm. The proximal margin consists of cut bony margins and soft tissue; skin is 1.5 to 5.5 cm distal to the resection margin. All five digits are present and demonstrate thickened yellow-alvarez nails. There is a green-alvarez ulcerated region present on the medial aspect that measures 2.5 x 1.8 cm. The margin is inked black. Radial Drill Press Operator sections submitted following decalcification: A1-A3 - composite complete cross section of great toe; A4-A5 - ulcerated region; A6 - scraped marrow at bony margins. (RLF:adj) Electronically Signed Shilpa Dangelo MD, FCAP Electronically Signed 12/29/2020 14:39
[2020-12-29] MEDS ORDERED: LORazepam 1 MG TABLET PO PRN (15:57)
[2020-12-29] MEDS: DULoxetine 30 MG CAPSULE PO SCH (21:36)
[2020-12-29] MEDS: ATORVASTATIN 40 MG TABLET PO SCH (21:36)
[2020-12-29] MEDS: CYCLOBENZAPRINE 10 MG TABLET PO SCH (21:37)
[2020-12-30] MEDS: ceFAZolin 1 GM VIAL IV SCH (04:32)
[2020-12-30] MEDS: 0.9 % SODIUM CHLORIDE 10 ML SYRINGE IV SCH ×2 (04:33→08:01)
[2020-12-30 07:03] LABS: Basophils # (Auto) 0.06 K/mcL (0.00-0.20); Basophils % (Auto) 0.6 % (0.0-2.0); Eosinophils # (Auto) 0.18 K/mcL (0.00-0.70); Eosinophils % (Auto) 1.8 % (0.0-7.0); Hematocrit 25.9 % (41.0-55.0); Lymphocytes # (Auto) 0.87 K/mcL (1.50-4.80); Lymphocytes % (Auto) 8.7 % (15.0-49.0); Mean Cell Volume 86.3 fL (80.0-100.0); Mean Corpuscular HGB Conc 30.9 g/dL (31.0-36.0); Mean Platelet Volume 9.4 fL (7.4-10.4); Neutrophils % (Auto) 76.9 % (38.0-78.0); Platelet Count 234 K/mcL (140-440); Red Cell Distribution Width 15.9 % (11.5-14.5)
[2020-12-30 08:07] LABS: ALT/SGPT 6 U/L (<40); AST/SGOT 21 U/L (<40); Albumin 3.2 gm/dL (3.2-5.2); Alkaline Phosphatase 75 U/L (39-117); Bilirubin,Total 0.5 mg/dL (0.1-1.0); Blood Urea Nitrogen 13 mg/dL (8-23); Calcium 8.3 mg/dL (8.6-10.4); Carbon Dioxide 24 mmol/L (22-30); Chloride 102 mmol/L (96-108); Globulin 3.1 gm/dL (2.2-3.7); Glomerular Filtration Rate 89; Glucose 57 mg/dL (70-105)
--- NOTE | 2020-12-30 08:45 | Internal Med Progress Note ---
SUBJECTIVE Subjective Patient information: Note initiated : 12/30/20 at 8:41 am Service Date, if different from initiated Date: [] Patient: Andrew Gonzáles 70 y/o M admitted on 12/24/20 for Right Diabetic Foot Ulcer. Chief Complaint: [] Interval history: History of present illness: Mr. Gonzáles is a 70 year old M Who went [facility] When he was in there is seen by Dr. Casey who is sentiment to the ED for admission and IV antibiotics and likely partial amputation. Patient denies fevers but complains of chills. Tired. Denies chest pain shortness of breath. In the ED his CBC just showed some chronic anemia. His chemistry showed a hyponatremia of 128 BUN 27 creatinine 1.0. He was started on IV antibiotics in the ED. Sound like an MRI several weeks ago summer but I do not have those results. 12/25 No overnight event or new complaints. 12/26 Patient had transmetatarsal amputation yesterday. Did lose quite a bit of blood during the procedure but follow-up globin stable. 12/27 No overnight event or new complaints. Patient doing well. Cultures growing strep agalactiae. There is a misunderstanding with about the availability of cosyntropin so test is not done today we will have staff perform test tomorrow morning. 12/29: Patient refused to have the midline inserted. He is also not sure if he could afford to receive the IV antibiotics therapy. 12/30: Patient refused to have the midline inserted. He also refused IM Rocephin as an option. He also refused keeping peripheral IV and receive Rocephin outpatient. Hypoglycemia with BS 57 this morning. Denies any foot pain. Review of Systems: denies headache/fever/chills/nausea/vomiting/chest or abdominal pain/cough/dyspnea/diarrhea. Otherwise see above. Constitutional Vitals: Vital Signs Temp Pulse Resp BP Pulse Ox 37.2 C 101 H 18 98/55 93 12/30/20 03:58 12/30/20 03:58 12/30/20 03:58 12/30/20 03:58 12/30/20 03:58 Period Temp Pulse Resp BP Sys/[place] Pulse Ox Last 24 Hr 36.2 C-37.2 C 88-105 12-20 98-124/55-77 93-97 Intake and Output 12/29/20 12/30/20 12/30/20 21:59 05:59 13:59 Intake Total 1040 100 Output Total 250 250 Balance 790 -150 Weight 102.467 kg Intake & Output: Intake & Output 12/29/20 12/30/20 12/30/20 21:59 05:59 13:59 Intake Total 1040 100 Output Total 250 250 Balance 790 -150 Weight 102.467 kg Intake: Oral 1040 100 Output: Void Amount 250 250 Other: Meal Dinner Percent of Meal Consumed 50% Feeding Ability Independent Urine Appearance Clear Clear Urine Color Dark Yellow Dark Yellow Exam: General: Alert, Awake, No acute Distress Eyes/N/T: EOMI,, Head/Neck: neck supple, CV: RRR, No murmurs, Pulm: Clear b/l, no wheezing/rhonchi/rales Abd: soft, nontender, +BS x4 Ext: no clubbing/cyanosis/edema Neuro: Alert, no focal deficits, moves all extremities, decreased sensation lower extremities from neuropathy, right foot dressings in place skin: warm/dry OBJ DATA Labs CBC & Chem 7: 12/30/20 05:24 12/30/20 05:24 Labs: Abnormal Lab Results 12/30/20 12/30/20 12/29/20 05:24 05:24 05:50 RBC 3.00 L Hgb 8.0 L Hct 25.9 L MCHC 30.9 L RDW 15.9 H Lymph % (Auto) 8.7 L [place] % (Auto) Lymph # (Auto) 0.87 L [place] # (Auto) 1.20 H ESR Sodium BUN Glucose 57 L Calcium 8.3 L Iron 30 L Transferrin % Sat 13 L Albumin 3.0 L Albumin/Globulin Ratio 0.9 L 12/29/20 12/28/20 12/28/20 05:50 06:10 06:10 RBC 2.97 L 2.96 L Hgb 7.9 L 7.9 L Hct 25.8 L 25.1 L MCHC 30.6 L RDW 15.5 H 15.1 H Lymph % (Auto) 11.5 L 11.5 L [place] % (Auto) 13.4 H Lymph # (Auto) 1.19 L 1.09 L [place] # (Auto) 1.19 H 1.27 H ESR Sodium BUN Glucose Calcium 8.4 L Iron Transferrin % Sat Albumin Albumin/Globulin Ratio 12/27/20 12/27/20 12/27/20 05:42 05:42 05:42 RBC Hgb 8.1 L Hct 25.4 L MCHC RDW Lymph % (Auto) [place] % (Auto) Lymph # (Auto) [place] # (Auto) ESR 27 H Sodium 132 L BUN 30 H Glucose 219 H Calcium 8.4 L Iron Transferrin % Sat Albumin Albumin/Globulin Ratio Meds: Medications Acetaminophen (Acetaminophen 325 Mg Tablet) 650 mg PO Q6HP PRN PRN Reason: PAIN/FEVER > 101 Last Admin: 12/26/20 18:00 Dose: 650 mg Documented by: Hydrocodone Bitart/Acetaminophen (Hydrocodone/Apap 5/325mg Tablet) 1 tab PO Q4HP PRN; Protocol PRN Reason: Per Pain Protocol Last Admin: 12/28/20 13:11 Dose: 1 tab Documented by: Albuterol/Ipratropium (Ipratropium/Albuterol 3 Ml Ampul.Neb) 3 ml NEB Q4HP PRN PRN Reason: Shortness Of Breath Aspirin (Aspirin 81 Mg Tab.Chew) 81 mg PO DAILY [facility] Last Admin: 12/29/20 08:46 Dose: 81 mg Documented by: Atorvastatin Calcium (Atorvastatin 40 Mg Tablet) 80 mg PO HS [facility] Last Admin: 12/29/20 21:36 Dose: 80 mg Documented by: Bisoprolol Fumarate (Bisoprolol 5 Mg Tablet) 2.5 mg PO DAILY [facility] Last Admin: 12/29/20 08:46 Dose: Not Given Documented by: Cefazolin Sodium (Cefazolin 1 Gm Vial) 2 gm IV Q8H [facility] Last Admin: 12/30/20 04:32 Dose: 2 gm Documented by: Cyclobenzaprine HCl (Cyclobenzaprine 10 Mg Tablet) 10 mg PO HS [facility] Last Admin: 12/29/20 21:37 Dose: 10 mg Documented by: Dextrose (Dextrose 50% 50 Ml Vial) 0 ml IV UD PRN PRN Reason: Hypoglycemia Diagnostic Test (Pha) (Accu-Chek 1 Each Strip) 1 each FS ACHS [facility] Last Admin: 12/29/20 19:36 Dose: 1 each Documented by: Docusate Sodium (Docusate Sodium 100 Mg Capsule) 100 mg PO BID [facility] Last Admin: 12/29/20 19:20 Dose: Not Given Documented by: Duloxetine HCl (Duloxetine 30 Mg Capsule) 60 mg PO QHS [facility] Last Admin: 12/29/20 21:36 Dose: 60 mg Documented by: Furosemide (Furosemide 40 Mg Tablet) 40 mg PO QDAY [facility] Last Admin: 12/29/20 08:46 Dose: Not Given Documented by: Gabapentin (Gabapentin 300 Mg Capsule) 300 mg PO BID [facility] Last Admin: 12/29/20 21:36 Dose: 300 mg Documented by: Glucose (Dextrose 31 Gm Oral.Susp) 15 gm PO PRN PRN PRN Reason: Hypoglycemia Heparin Sodium (Porcine) (Heparin 5,000 Unit/Ml Vial) 5,000 unit SQ Q12 [facility] Last Admin: 12/29/20 21:36 Dose: 5,000 unit Documented by: Heparin Sodium (Porcine) (Heparin Flush 10 Units/Ml 5 Ml Syringe) 2 ml IV Q12 [facility] Last Admin: 12/30/20 08:01 Dose: Not Given Documented by: Potassium Chloride 40 meq/ (Dextrose) 520 mls @ 130 mls/hr IV UD PRN PRN Reason: Potassium < 3 Magnesium Sulfate (Magnesium Sulfate) 2 gm in 50 mls @ 50 mls/hr IV UD PRN PRN Reason: Magnesium </= 1.6 Insulin Glargine (Insulin Glargine, Human 1 Unit/0.01 Ml) 45 unit SQ BID [facility] Last Admin: 12/29/20 21:37 Dose: 45 units Documented by: Insulin Human Lispro (Insulin Lispro 1 Unit/0.01 Ml Unit) 0 unit SQ [facility]; Protocol Last Admin: 12/29/20 21:37 Dose: Not Given Documented by: Lactulose (Lactulose 20 Gm/30 Ml Oral.Nolvia) 20 gm PO DAILYP PRN PRN Reason: Constipation Latanoprost (Latanoprost Ophth Drops 2.5ml Bottle) 1 gtt OU QHS [facility] Last Admin: 12/29/20 19:22 Dose: Not Given Documented by: Meclizine HCl (Meclizine 25 Mg Tablet) 25 mg PO TIDP PRN PRN Reason: Vertigo Last Admin: 12/27/20 04:41 Dose: 25 mg Documented by: Metformin HCl (Metformin 500 Mg Tab.Xl.24h) 500 mg PO BIDCC [facility] Last Admin: 12/29/20 17:25 Dose: 500 mg Documented by: Morphine Sulfate (Morphine 2 Mg/Ml Vial) 1 - 3 mg IV Q3HP PRN; Protocol PRN Reason: Per Pain Protocol Last Admin: 12/26/20 10:03 Dose: 2 mg Documented by: Nitroglycerin (Nitroglycerin 0.4 Mg Tab.Subl) 0.4 mg SL Q5M PRN PRN Reason: Chest Pain Ondansetron HCl (Ondansetron 4 Mg/2 Ml Vial) 4 mg IV Q4HP PRN PRN Reason: Nausea And Vomiting Polyethylene Glycol (Polyethylene Glycol 3350 17 Gm Packet) 17 gm PO DAILYP PRN PRN Reason: Constipation Potassium Chloride (Potassium Chloride 20 Meq Tablet) 40 meq PO UD PRN PRN Reason: Potssium is 3-3.5 Potassium Chloride (Potassium Chloride 20 Meq Tablet) 40 meq PO UD PRN PRN Reason: Potassium < 3 Senna (Sennosides 1 Tablet) 2 tab PO DAILYP PRN PRN Reason: Constipation Sodium Chloride (0.9 % Sodium Chloride 10 Ml Syringe) 10 ml IV Q8 [facility] Last Admin: 12/30/20 04:33 Dose: 10 ml Documented by: Sodium Chloride (0.9 % Sodium Chloride 10 Ml Syringe) 10 ml IV Q12 [facility] Last Admin: 12/30/20 08:01 Dose: Not Given Documented by: A/P Assessment and plan (1) Diabetic ulcer of right foot: Status: Acute (2) T2DM (type 2 diabetes mellitus): Status: Acute (3) Diabetic neuropathy: Status: Acute (4) Essential (primary) hypertension: Status: Acute (5) Combined congestive systolic and diastolic heart failure: Status: Acute (6) Anemia, normocytic normochromic: Status: Acute Narrative A/P Narrative: 1. T2DM with diabetic neuropathy and right diabetic foot: HgA1c 9.[address] Garzon performed transmetatarsal amputation on 12/26 and also doing post-surgical dressing change Lantus 45-->40 unit SQ BID to avoid hypoglycemia episodes Metformin BID Sliding scale insulin AC HS Accu Chek AC HS Tylenol PRN fever Ancef for now, will switch to Rocephin upon hospital discharge until 01/08 Gabapentin 300mg PO BID [place] PRN moderate pain Morphine IV PRN severe pain Medline insertion for IV antibiotics therapy Recommend SNF placement for rehab and IV antibiotics therapy but patient refused; would prefer outpatient infusion therapy instead f/u Dr. Garzon and Dr. Elkins upon discharge Patient refused to have the midline inserted. He also refused IM Rocephin as an option. He also refused keeping peripheral IV and receive Rocephin outpatient. Would keep patient in hospital and continue IV Rocephin therapy until patient changes his mind or until he sign himself out and leave AMA 2. Combined CHF: Bisoprolol Lasix 3. Essential HTN: Bisoprolol 4. Anemia, normocytic normochromic: cbc w/ auto diff daily to trend H/H; transfuse pRBC if hemoglobin <7.0, active bleeding, or symptomatic 5. Hyponatremia: Resolved Pending ACTH stimulation test to look for adrenal insufficiency GI ppx: not currently indicated DVT ppx: heparin Code status: DNI DNR Prognosis: stable Disposition: inpatient med surg Time Spent With Patient Time: Total time spent is greater than 50% in coordination of care (as documented) at patient's floor/unit and/or counseling patient: QUALITY VTE Deep Vein Thrombosis/Pulmonary Embolism Present on Admission: No
[2020-12-30] MEDS ORDERED: INSULIN GLARGINE, HUMAN 1 UNIT/0.01 ML SQ SCH (09:00)
[2020-12-30] MEDS: INSULIN LISPRO 1 UNIT/0.01 ML UNIT SQ SCH ×2 (10:18→12:16)
[2020-12-30] MEDS: BISOPROLOL 5 MG TABLET PO SCH (10:19)
[2020-12-30] MEDS: HEPARIN 5,000 UNIT/ML VIAL SQ SCH (10:27)
[2020-12-30] MEDS: GABAPENTIN 300 MG CAPSULE PO SCH (10:28)
[2020-12-30] MEDS: ASPIRIN 81 MG TAB.CHEW PO SCH (10:28)
[2020-12-30] MEDS: DOCUSATE SODIUM 100 MG CAPSULE PO SCH (10:28)
[2020-12-30] MEDS: FUROSEMIDE 40 MG TABLET PO SCH (10:28)
[2020-12-30] MEDS: metFORMIN 500 MG TAB.XL.24H PO SCH (10:28)
--- NOTE | 2020-12-30 12:09 | Discharge Summary ---
Discharge Provider Provider Patient information: Note initiated : 12/30/20 at 12:03 pm Service Date, if different from initiated Date: [] Patient: Andrew Gonzáles 70 y/o M admitted on 12/24/20 for Right Diabetic Foot Ulcer. Chief Complaint: [] Date of admission: 12/24/20 19:28 Discharge date: 12/30/20 Primary care physician: Ro Keating Consults: 12/24/20 Consult to Physician [CONS] Stat Comment: Consulting Provider: Albert Garzon Reason For Exam: Physician to Consult Consult to Physician [CONS] Stat Comment: Consulting Provider: Fortunato Tellez Reason For Exam: Physician to Consult 12/24/20 20:23 Consult to Physician [CONS] Routine Comment: Consulting Provider: Albert Garzon Reason For Exam: Physician to Consult Consult to Physician [CONS] Urgent Comment: Consulting Provider: Huber Delcid Reason For Exam: Physician to Consult Discharge Meds Discharge Medications Home Medications albuterol 180 mcg INHALATION QDAY 12/25/20 [History Confirmed 12/25/20 Last Taken Unknown] ascorbic acid (vitamin C) 250 mg PO QDAY 12/25/20 [History Confirmed 12/25/20 Last Taken Unknown] aspirin 81 mg PO QDAY 12/25/20 [History Confirmed 12/25/20 Last Taken 12/25/20] atorvastatin 80 mg PO QHS 12/25/20 [History Confirmed 12/25/20 Last Taken Unknown] bisoprolol fumarate 10 mg PO QDAY 12/25/20 [History Confirmed 12/25/20 Last Taken Unknown] blood sugar diagnostic [Accu-Chek Guide test strips] 12/25/20 [History Confirmed 12/25/20 Last Taken Unknown] blood-glucose meter [Accu-Chek Guide Glucose Meter] 12/25/20 [History Confirmed 12/25/20 Last Taken Unknown] cholecalciferol (vitamin D3) 125 mcg PO QDAY 12/25/20 [History Confirmed 12/25/20 Last Taken Unknown] clotrimazole 1 applic TOPICAL BID 12/25/20 [History Confirmed 12/25/20 Last Taken Unknown] clotrimazole 1 applic TOPICAL BID 12/25/20 [History Confirmed 12/25/20 Last Taken Unknown] cyanocobalamin (vitamin B-12) 500 mcg PO QDAY 12/25/20 [History Confirmed 12/25/20 Last Taken Unknown] cyclobenzaprine 10 mg PO HS 12/25/20 [History Confirmed 12/25/20 Last Taken Unknown] diclofenac sodium 2 - 4 g TOPICAL QID 12/25/20 [History Confirmed 12/25/20 Last Taken Unknown] duloxetine 60 mg PO QHS 12/25/20 [History Confirmed 12/25/20 Last Taken Unknown] ferrous sulfate 325 mg PO QDAY 12/25/20 [History Confirmed 12/25/20 Last Taken Unknown] fluconazole 150 mg PO Q3D 12/25/20 [History Confirmed 12/25/20 Last Taken Unknown] furosemide 40 mg PO QDAY 12/25/20 [History Confirmed 12/25/20 Last Taken Unknown] gabapentin 300 mg PO BID 12/25/20 [History Confirmed 12/25/20 Last Taken Unknown] insulin aspart U-100 30 unit SUBCUT TID 12/25/20 [History Confirmed 12/25/20 Last Taken Unknown] insulin glargine 40 unit SUBCUT BID 12/25/20 [History Confirmed 12/25/20 Last Taken Unknown] latanoprost 1 drp OPHTHALMIC (EYE) QHS 12/25/20 [History Confirmed 12/25/20 Last Taken Unknown] lisinopril 20 mg PO QDAY 12/25/20 [History Confirmed 12/25/20 Last Taken Unknown] meclizine 25 mg PO TID 12/25/20 [History Confirmed 12/25/20 Last Taken Unknown] metformin 500 mg PO BID 12/25/20 [History Confirmed 12/25/20 Last Taken Unknown] nitroglycerin 0.4 mg SUBLINGUAL Q5M PRN 12/25/20 [History Confirmed 12/25/20 Last Taken Unknown] ceftriaxone 1 g IM Q24H #11 ea 12/30/20 [Rx Last Taken Unknown] COURSE Hospital Course Hospital course: Patient was admitted on 12/24/20 for right diabetic foot with right 5th metatarsal osteomy[address]itis. Dr. Garzon was consulted who performed partial transmetatarsal amputation. Wound culture was obtained and it grew strep agalactiae and coagulase negative staph. He was being treated with IV antibiotics Ancef. Narcotics were also provided for pain management. It was recommended that patient received midline placement for group home IV antibiotics therapy. However, patient refused. Alternatives such as keeping the peripheral IV access for group home IV antibiotics therapy, or IM Rocephin were offered to patient, but he refused all of these options. Rx of IM Rocephin until 01/08/21 given to him nonetheless. Patient left AMA on 12/30/20. Discharge diagnosis: right diabetic foot with osteomyelitis Time Spent with Patient Time attestation: Total time spent providing and/or coordinating discharge services: Patient was admitted on 12/24/20 for right diabetic foot with right 5th [address] Garzon was consulted who performed partial transmetatarsal amputation. Wound culture was obtained and it grew strep agalactiae and coagulase negative staph. He was being treated with IV antibiotics Ancef. Narcotics were also provided for pain management. It was recommended that patient received midline placement for group home IV antibiotics therapy. However, patient refused. 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 Rx of IM Rocephin until 01/08/21 given to him nonetheless. Patient left AMA on 12/30/20. EXAM Constitutional Vitals: Temp Pulse Resp BP Pulse Ox 36.3 C 143 H 18 97/65 97 12/30/20 08:00 12/30/20 08:00 12/30/20 08:00 12/30/20 08:00 12/30/20 08:00 General appearance: cooperative and no acute distress Head Head exam: Present atraumatic and normocephalic Eye Eye exam: Present EOMI and PERRL ENT ENT exam: Present mucous membranes moist, normal exam and normal external ear exam Neck Neck exam: Present normal inspection; Absent lymphadenopathy, tenderness and thyromegaly Respiratory Respiratory exam: Absent accessory muscle use, respiratory distress and wheezes Cardiovascular Cardiovascular exam: Present normal rate and rhythm; Absent JVD GI/Abdominal GI/Abdominal exam: Present normal bowel sounds and soft; Absent organomegaly and tenderness Rectal Rectal exam: Present deferred Extremities Exam Extremities exam: Present full ROM, normal capillary refill and normal inspection; Absent tenderness Additional comments: right foot covered with surgical dressing Neurological Exam Neurological exam: Present alert, CN II-XII intact and oriented X3; Absent motor sensory deficit Psychiatric Psychiatric exam: Present normal affect and normal mood; Absent anxious and depressed Skin Skin exam: Present dry and intact Discharge Data Data Completed and Pending Labs on day of discharge: Labs from last 24 hours 12/30/20 12/30/20 05:24 05:24 WBC 10.0 RBC 3.00 L Hgb 8.0 L Hct 25.9 L MCV 86.3 MCH 26.7 MCHC 30.9 L RDW 15.9 H Plt Count 234 MPV 9.4 Neut % (Auto) 76.9 Lymph % (Auto) 8.7 L [place] % (Auto) 12.0 Eos % (Auto) 1.8 Baso % (Auto) 0.6 Lymph # (Auto) 0.87 L [place] # (Auto) 1.20 H Eos # (Auto) 0.18 Baso # (Auto) 0.06 Absolute Neutrophils 7.70 Sodium 136 Potassium 3.9 Chloride 102 Carbon Dioxide 24 Anion Gap 10.0 BUN 13 Creatinine 0.8 GFR Calculation 89 Glucose 57 L Calcium 8.3 L Total Bilirubin 0.5 AST 21 ALT 6 Alkaline Phosphatase 75 Total Protein 6.3 Albumin 3.2 Globulin 3.1 Albumin/Globulin Ratio 1.0 Preliminary micro results at discharge 12/25/20 15:43 Gram Stain - Preliminary Foot - Right Anaerobic Culture - Preliminary Gram Stain - Preliminary Tissue Culture - Preliminary Strep agalactiae - (group b) Coagulase negative staph 12/25/20 15:45 Gram Stain - Preliminary Foot - Right Anaerobic Culture - Preliminary 12/25/20 15:40 Gram Stain - Preliminary Foot - Right Anaerobic Culture - Preliminary Gram Stain - Preliminary Tissue Culture - Preliminary Strep agalactiae - (group b) Coagulase negative staph Coagulase negative staph#2 Coagulase negative staph#3 Discharge Plan Patient/Caregiver Discharge Instructions Instructions: Ceftriaxone (By injection), Toe Amputation (DC) Activity Restrictions/Additional Instructions: The Hospitalist has recommended that you discharge with IV antibiotics, but you have refused IV antibiotics and chosen to leave against medical advice. The Hospitalist has ordered daily antibiotic injections, which you will get in [place] at [facility]. [facility] will call you to set up your daily appointments. Leave your dressing intact until your follow up appointment with Dr. Garzon. It is important for your health to keep all of your follow-up appointments that were made for you. Heel touch weight-bearing on operative side. Use crutches when up. 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 Return to ER for fever, chills, uncontrolled pain, inability to urinate or have a bowel movement, nausea and/or vomiting, swelling, redness, signs of infection, shortness of breath, chest pain, return of symptoms, or other acute symptom. This discharge packet is provided to you to help keep you informed about your care. We want to ensure you get everything you need when you go home. You will also be receiving a call from us in a few days to follow up with you and see how you are doing since your discharge. This gives us a chance to listen to any concerns you maybe experiencing since you were discharged or any additional needs you may have, as well as providing us feedback on your care experience. We strive to always provide excellent care and thank you for your feedback and for choosing [facility]. Prescriptions: New ceftriaxone 1 gram recon soln 1 g IM Q24H Qty: 11 RF: 0 No Action albuterol 90 mcg/actuation Aerosol 180 mcg INHALATION QDAY RF: 0 cyclobenzaprine 10 mg Tablet 10 mg PO HS RF: 0 furosemide 40 mg Tablet 40 mg PO QDAY RF: 0 latanoprost 0.005 % Drops 1 drp OPHTHALMIC (EYE) QHS RF: 0 atorvastatin 80 mg Tablet 80 mg PO QHS RF: 0 insulin glargine 100 unit/mL Solution 40 unit SUBCUT BID RF: 0 fluconazole 150 mg Tablet 150 mg PO Q3D RF: 0 lisinopril 20 mg Tablet 20 mg PO QDAY RF: 0 bisoprolol fumarate 10 mg Tablet 10 mg PO QDAY RF: 0 cyanocobalamin (vitamin B-12) 500 mcg Tablet 500 mcg PO QDAY RF: 0 meclizine 25 mg Tablet 25 mg PO TID RF: 0 ascorbic acid (vitamin C) 250 mg Tablet 250 mg PO QDAY RF: 0 insulin aspart U-100 100 unit/mL Solution 30 unit SUBCUT TID RF: 0 ferrous sulfate 325 mg (65 mg iron) Tablet 325 mg PO QDAY RF: 0 nitroglycerin 0.4 mg Tablet, Sublingual 0.4 mg SUBLINGUAL Q5M PRN (Reason: Chest Pain) RF: 0 gabapentin 300 mg Capsule 300 mg PO BID RF: 0 aspirin 81 mg Tablet 81 mg PO QDAY RF: 0 metformin 500 mg Tablet Extended Release 24 Hr 500 mg PO BID RF: 0 clotrimazole 1 % Cream 1 applic TOPICAL BID RF: 0 clotrimazole 1 % Cream 1 applic TOPICAL BID RF: 0 cholecalciferol (vitamin D3) 125 mcg (5,000 unit) Capsule 125 mcg PO QDAY RF: 0 duloxetine 60 mg Capsule,Delayed Release(Dr/Ec) 60 mg PO QHS RF: 0 diclofenac sodium 1 % Gel 2 - 4 g TOPICAL QID RF: 0 (DME) blood-glucose meter [Accu-Chek Guide Glucose Meter] Misc MISCELLANEOUS RF: 0 (DME) Accu-Chek Guide test strips Strip MISCELLANEOUS RF: 0 Follow Up Plan Follow up with: Albert Garzon DPM [Physician] - 12/31/20 11:30 am Ro Keating ARNP [Primary Care Provider] - (Contact office on 12/31 to schedule follow-up appointment) Richy Elkins MD [Physician] - 01/11/21 1:00 pm Patient Disposition: Left Against Medical Advice Discharge Orders: Discharge Order (Routine); Ordered 12/30/20 Ordered By: Trent Mccabe Discharge Comment: pt leaving AMA via personal vehicle with friend QUALITY VTE Deep Vein Thrombosis/Pulmonary Embolism Present on Admission: No
== END 2020-12-30 11:50 | disposition left against medical advice (07) | DRG 617 ==
LOC: ED 13:43 → MEDSUR 19:28 → MEDSUROUT 19:28 → MEDSUR 12-30 06:09
PROVIDERS: ADMIT Internal Medicine; ATTEND Internal Medicine